=== PATIENT | female | born 1965 | race Caucasian/White ===

== ENCOUNTER → 2017-09-25 16:20 | Outpatient (CLI) | payer OTHER, SELFPAY ==
--- NOTE | 2017-09-25 16:26 | BI_ITS ---
MAMMOGRAPHY - BILATERAL SCREENING REASON FOR EXAM: Female, 52 years old. Routine annual screening examination. PERTINENT HISTORY: Sister with breast cancer. Aunt with breast cancer. TECHNIQUE: Digital bilateral breast peter (3D mammographic acquisition) in the CC and MLO projections. 2-D mediolateral oblique (MLO) and craniocaudad (CC) views of both breasts were obtained. CAD: Full Field Digital Mammography with Computer Added Detection was performed. COMPARISON: Comparison is made with prior study dated September 13, 2016 and December 12, 2015. FINDINGS: Breast Composition: There are scattered areas of fibroglandular density. There are no dominant masses or suspicious calcifications. No other significant abnormalities are identified. There has been no significant change since the prior study. BI/SCREENING MAMM (CAD), BILAT IMPRESSION: Stable bilateral screening mammogram. Yearly follow-up mammogram recommended. (A) ASSESSMENT CATEGORY: BIRADS Category 1: Negative. A letter regarding these results will be sent to the patient by the facility within 30 days. Approximately 10% of breast cancers are not detected by mammography. A normal mammogram should not delay biopsy of a clinically suspicious abnormality. [id number] Electronically Signed: Ronal Duagn MD at 9:06 EDT Tel [phone], Service support ,
== END ==
PROVIDERS: Family Provider Family Medicine; PCP Family Medicine; Visit Provider Obstetrics & Gynecology
DX: Z12.31 Encounter for screening mammogram for malignant neoplasm of breast (principal)
CPT/HCPCS: 77063; 77067

== ENCOUNTER → 2018-02-20 07:16 | Outpatient (CLI) | payer OTHER, SELFPAY ==
[2018-02-20 07:21] LABS: Mucous, Urine 0 SEEN /hpf (<or=2+); Red Blood Cells-Urine 0 SEEN /hpf (0-5); White Blood Cells 0 SEEN /hpf (0-5)
[2018-02-20 07:38] LABS: Color, Urine Yellow (Yellow); Glucose, Dipstick Normal (Normal); Ketone-Dipstick Negative (Negative); Leukocyte Esterase-Dipstick 25 /ul (Negative); Nitrite-Dipstick Negative (Negative); Occult Blood-Urine 10 /ul (Negative); Protein-Dipstick Negative (Negative); Urine Bilirubin Dipstick Negative (Negative); Urine Clarity Sl. Cloudy (Clear); Urine Urobilinogen Normal (Normal)
[2018-02-20 07:43] LABS: Bacteria RARE /hpf (None Seen); Hyaline Cast 0-5 SEEN /lpf (0-5); Squamous Epithelial Cells - UA 0-5 SEEN /hpf (5-10)
== END ==
PROVIDERS: Family Provider Family Medicine; PCP Family Medicine; Referring Provider Nurse Practitioner Family; Visit Provider Nurse Practitioner Family
DX: N02.9 Recurrent and persistent hematuria with unspecified morphologic changes (principal)
CPT/HCPCS: 81001; 87086; 87088

== ENCOUNTER → 2018-03-14 12:53 | Outpatient (CLI) | payer OTHER, SELFPAY ==
[2018-03-14 13:20] LABS: Color, Urine Yellow (Yellow); Glucose, Dipstick Normal (Normal); Ketone-Dipstick Negative (Negative); Leukocyte Esterase-Dipstick 25 /ul (Negative); Nitrite-Dipstick Negative (Negative); Occult Blood-Urine Negative /ul (Negative); Protein-Dipstick Negative (Negative); Urine Bilirubin Dipstick Negative (Negative); Urine Clarity Clear (Clear); Urine Urobilinogen Normal (Normal)
== END ==
PROVIDERS: Family Provider Family Medicine; PCP Family Medicine; Referring Provider Nurse Practitioner Family; Visit Provider Nurse Practitioner Family
DX: N02.9 Recurrent and persistent hematuria with unspecified morphologic changes (principal)
CPT/HCPCS: 81002

== ENCOUNTER → 2018-04-29 06:27 | Outpatient (CLI) | payer OTHER, SELFPAY ==
[2018-04-29 08:56] LABS: Anion Gap 8 (5-15); BUN 12 mg/dL (7-18); BUN/Creat Ratio 15.6 RATIO (10-20); Calcium,Total 9.5 mg/dL (8.5-10.1); Chloride 104 mmol/L (98-107); Creatinine, Serum 0.77 mg/dL (0.55-1.02); EST Glomerular Filtration Rate 83 mL/min (>60); Est Glom Filt Rate - Afr Amer 101 mL/min (>60); Glucose 92 mg/dL (74-106); Sodium Level 140 mmol/L (136-145); Thyroid Stim Hormone (TSH) 3.51 uIU/mL (0.358-3.74)
== END ==
PROVIDERS: Family Provider Family Medicine; PCP Family Medicine; Referring Provider Family Medicine; Visit Provider Family Medicine
DX: R00.2 Palpitations (principal)
CPT/HCPCS: 36415; 80048; 84443

== ENCOUNTER → 2018-09-02 12:55 | Outpatient (CLI) | payer OTHER, SELFPAY ==
[2018-08-28 14:58] VITALS: BMI 31.8
--- NOTE | 2018-09-02 13:08 | ECHOD_ITS ---
Reason For Study: PALPITATIONS Procedure This was a 2D Doppler, Color Flow transthoracic echocardiogram. Exam performed in department. Left Ventricle Normal LV size. Left ventricular systolic function is normal. The estimated ejection fraction is 65 %. Normal diastology for age. No regional wall motion abnormalities noted. Right Ventricle Normal RV size. Normal systolic function. Atria Normal left atrium. Normal right atrium. Mitral Valve Normal mitral valve. Tricuspid Valve Normal tricuspid valve. Aortic Valve Normal aortic valve. Trisinus/trileaflet aortic valve. Pulmonic Valve Normal pulmonic valve. Great Vessels Normal aortic root. The pulmonary artery is normal size. Normal inferior vena cava. Pericardium/Pleural No pericardial effusion. MMode/2D Measurements & Calculations LVIDd: 4.6 cm IVSd: 0.82 cm Ao root diam: 3.0 cm LVIDs: 3.2 cm LVPWd: 0.95 cm RVDd: 3.5 cm FS: 31.8 % LAV(MOD-bp): 66.6 ml LA A4 area: 19.4 cm2 LA dimension(2D): 4.2 cm LAV(MOD-bp) Indexed: 30.5 ml/m2 LAV(MOD-sp2): 73.5 ml LAV(MOD-sp4): 58.9 ml RA A4 area: 12.0 cm2 Time Measurements MV dec time: 0.22 sec Doppler Measurements & Calculations MV E max gagan: 55.2 cm/sec Lat Peak E' Gagan: 9.4 cm/sec Med Peak E' Gagan: 9.0 cm/sec MV A max gaagn: 50.6 cm/sec E/E' lat: 5.9 E/E' med: 6.2 MV E/A: 1.1 Ao V2 max: 107.7 cm/sec LV V1 max: 116.6 cm/sec Ao max P.6 mmHg LV V1 max P.4 mmHg Interpretation Summary Normal LV size. Left ventricular systolic function is normal. The estimated ejection fraction is 65 %. Normal diastology for age. Structurally normal valves. Ordering Physician: Cyn Belcher Referring Physician: Cyn Belcher Performed By: Magi Daniels RDCS, RVT
== END ==
PROVIDERS: Family Provider Family Medicine; PCP Family Medicine; Referring Provider Family Medicine; Visit Provider Family Medicine
DX: R00.2 Palpitations (principal)
CPT/HCPCS: 93306

== ENCOUNTER → 2018-10-04 10:48 | Outpatient (CLI) | payer OTHER, SELFPAY ==
[2018-08-28 14:58] VITALS: BMI 31.8
--- NOTE | 2018-10-04 10:59 | BI_ITS ---
MAMMOGRAPHY - BILATERAL SCREENING REASON FOR EXAM: Female, 53 years old. Routine annual screening examination. PERTINENT HISTORY: Sister with breast cancer. Aunt with breast cancer. TECHNIQUE: Digital bilateral breast queta (3D mammographic acquisition) in the CC and MLO projections. 2-D mediolateral oblique (MLO) and craniocaudad (CC) views of both breasts were obtained. CAD: Full Field Digital Mammography with Computer Added Detection was performed. COMPARISON: Comparison is made with prior examination dated September 25, 2017 and September 13, 2016. FINDINGS: Breast Composition: There are scattered areas of fibroglandular density. There are no dominant masses or suspicious calcifications. No other significant abnormalities are identified. There has been no significant change since the prior study. BI/SCREEN MAMM (CAD) W/QUETA BILAT IMPRESSION: Stable bilateral screening mammogram. Yearly follow-up mammogram recommended. (A) ASSESSMENT CATEGORY: BIRADS Category 1: Negative. A letter regarding these results will be sent to the patient by the facility within 30 days. Approximately 10% of breast cancers are not detected by mammography. A normal mammogram should not delay biopsy of a clinically suspicious abnormality. [id number] Electronically Signed: Ronal Dugan, at 9:00 EDT , Service support ,
== END ==
PROVIDERS: Family Provider Family Medicine; PCP Family Medicine; Referring Provider Nurse Practitioner Women's Health; Visit Provider Nurse Practitioner Women's Health
DX: Z12.31 Encounter for screening mammogram for malignant neoplasm of breast (principal)
CPT/HCPCS: 77063; 77067

== ENCOUNTER → 2019-11-30 16:51 | Outpatient (CLI) | payer OTHER, SELFPAY ==
[2019-11-30 14:30] VITALS: BMI 31.8
[2019-12-05 12:02] LABS: HPV APTIMA, High Risk Negative (Negative)
== END ==
PROVIDERS: PCP Family Medicine; Referring Provider Nurse Practitioner Women's Health; Visit Provider Nurse Practitioner Women's Health
DX: Z12.4 Encounter for screening for malignant neoplasm of cervix (principal)
CPT/HCPCS: 87624; 88175; G0145

== ENCOUNTER → 2019-12-01 15:25 | Outpatient (CLI) | payer OTHER, SELFPAY ==
[2018-08-28 14:58] VITALS: BMI 31.8
[2019-11-30 14:30] VITALS: BMI 31.8
--- NOTE | 2019-12-01 15:25 | BI_ITS ---
MAMMOGRAPHY - BILATERAL SCREENING REASON FOR EXAM: Female, 54 years old. Routine annual screening examination. PERTINENT HISTORY: Sister with breast cancer. Aunt with breast cancer. TECHNIQUE: Digital bilateral breast queta (3D mammographic acquisition) in the CC and MLO projections. 2-D mediolateral oblique (MLO) and craniocaudad (CC) views of both breasts were obtained. CAD: Full Field Digital Mammography with Computer Added Detection was performed. COMPARISON: Comparison is made with prior examination dated October 04, 2018 and September 25, 2017. FINDINGS: Breast Composition: There are scattered areas of fibroglandular density. There are no dominant masses or suspicious calcifications. Stable benign-appearing bilateral axillary lymph nodes. Stable 5 mm calcified nodule in the medial retroareolar region of the left breast No other significant abnormalities are identified. There has been no significant change since the prior study. BI/SCREEN MAMM (CAD) W/QUETA BILAT IMPRESSION: Stable bilateral screening mammogram. Yearly follow-up mammogram recommended. (A) ASSESSMENT CATEGORY: BIRADS Category 2: Benign. A letter regarding these results will be sent to the patient by the facility within 30 days. Approximately 10% of breast cancers are not detected by mammography. A normal mammogram should not delay biopsy of a clinically suspicious abnormality. [id number] Electronically Signed: Ronal Dugan, at 9:04 EDT , Service support ,
== END ==
PROVIDERS: PCP Family Medicine; Referring Provider Obstetrics & Gynecology; Visit Provider Obstetrics & Gynecology
DX: Z12.31 Encounter for screening mammogram for malignant neoplasm of breast (principal); Z80.3 Family history of malignant neoplasm of breast
CPT/HCPCS: 77063; 77067

== ENCOUNTER 2020-08-22 13:23 | Outpatient (RCR) | payer OTHER, SELFPAY ==
[2019-11-30 14:30] VITALS: BMI 31.8
--- NOTE | 2021-05-01 17:11 | DS.PCM_ITS ---
Massage Therapy Discharge Summary: Initial Evaluation Date: 08/22/2020 Diagnosis: Back/Hip Pain No. of Visits: 1 Date of last visit: 08/22/20 This patient is being discharged from our care at the [facility]. Thank you, Karen Mcmanus LMT
== END 2020-08-22 19:00 | disposition home or self-care (01) ==
LOC: MASS 13:23
PROVIDERS: PCP Nurse Practitioner Family; Visit Provider Nurse Practitioner Family
DX: M54.9 Dorsalgia, unspecified (principal); M25.559 Pain in unspecified hip
CPT/HCPCS: 97124

== ENCOUNTER → 2020-09-13 14:55 | Outpatient (CLI) | payer OTHER, SELFPAY ==
[2019-11-30 14:30] VITALS: BMI 31.8
--- NOTE | 2020-09-13 14:59 | US_ITS ---
STUDY: SUPERFICIAL ULTRASOUND - POPLITEAL FOSSA. REASON FOR EXAM: Female, 55 years old. L POSTERIOR KNEE PAIN,RULE OUT BAKERS CYST TECHNIQUE: A superficial ultrasound was performed with real-time and static rodney-scale imaging. COMPARISON: None. FINDINGS: Sonographic imaging of the popliteal fossa was performed. No evidence of Lew''s cyst. Dilatation of the popliteal vein. US/Ext Non Vasc Limited/Soft Tiss IMPRESSION: No evidence of a Lew''s cyst. There is evidence of dilatation of the popliteal vein. Electronically Signed: Ronal Dugan MD at 15:32 EDT , Service support ,
--- NOTE | 2020-09-13 15:10 | RAD_ITS ---
STUDY: X-RAY - LEFT KNEE REASON FOR EXAM: Female, 55 years old. L POSTERIOR KNEE PAIN, RULE OUT BAKERS CYST TECHNIQUE: 4 view(s) of the knee. COMPARISON: None. FINDINGS: Normal visualized distal femur. Normal visualized proximal tibia and fibula. Normal proximal tibiofibular articulation. Normal medial femorotibial compartment. Normal lateral femorotibial compartment. Normal patellofemoral articulation. The soft tissue structures are unremarkable. RAD/Knee 4 or More Views IMPRESSION: Normal x-ray examination of the knee. Electronically Signed: Ronal Dugan MD at 15:44 EDT , Service support ,
== END ==
PROVIDERS: PCP Nurse Practitioner Family; Referring Provider Nurse Practitioner Family; Visit Provider Nurse Practitioner Family
DX: M25.562 Pain in left knee (principal)
CPT/HCPCS: 73564; 76882

== ENCOUNTER → 2020-09-15 15:09 | Outpatient (CLI) | payer OTHER, SELFPAY ==
[2019-11-30 14:30] VITALS: BMI 31.8
--- NOTE | 2020-09-15 15:11 | VDLE_ITS ---
Reason For Study: chronic pain left knee Procedure LEFT This is a venous duplex using B-mode, color GSV is normal. flow and spectral Doppler. CFV is compressible, spontaneous, phasic, Exam performed in department. competent, and demonstrates normal The exam was abbreviated due to the COVID 19 augmentation. protocol. FV is compressible, spontaneous, phasic, The exam was diagnostic. competent and demonstrates normal A preliminary report was called and/or faxed augmentation. to Antonette Osborn INVENTORY CLERK-C. POP V is compressible, spontaneous, phasic, competent and demonstrates normal augmentation. T/P Trunk is compressible. PTV is compressible. LT PerV is compressible. VL/Venous Duplex US, Unilateral Interpretation Summary There is no evidence of left lower extremity deep vein thrombosis. Left great s aphenous vein appears patent and compressible segmentally. Slight sluggish flow noted within a minima lly dilated left popliteal vein COVID-19 protocol utilized Ordering Physician: Antonette Alexander Performed By: Augustus Raza RVT
== END ==
PROVIDERS: PCP Nurse Practitioner Family; Referring Provider Nurse Practitioner Family; Visit Provider Nurse Practitioner Family
DX: M25.562 Pain in left knee (principal)
CPT/HCPCS: 93971

== ENCOUNTER → 2021-01-09 07:31 | Outpatient (CLI) | payer OTHER, SELFPAY ==
--- NOTE | 2021-01-09 07:54 | US_ITS ---
STUDY: ABDOMINAL ULTRASOUND - RIGHT UPPER QUADRANT REASON FOR VISIT: Female, 55 years old ABN LEVELS TECHNIQUE: Ultrasound evaluation of the right upper quadrant was performed with real-time and static rodney-scale imaging. TECHNICAL QUALITY: Adequate. COMPARISON: None. FINDINGS: Liver: The liver measures 17.2 cm. There is increased echogenicity consistent with fatty infiltration. The bile ducts are within normal limits. There is hepatic color flow. The direction of portal flow is hepatopetal. There is no demonstrated mass lesion. Gallbladder: Normal distended gallbladder. The gallbladder wall measures 2.8 mm. There is a negative sonographic Thakur''s sign. There is no pericholecystic fluid. There are no gallstones. Common Bile Duct (C.B.D.): The common bile duct measures 5.5 mm. Pancreas: Normal size of the head, body and tail of the pancreas. There is normal echogenicity of the pancreas. There is no demonstrated pancreatic mass or cyst. Right Kidney: Normal size of the right kidney. The right kidney measures 12.6 cm x 6.4 cm x 4.1 cm. Normal renal cortex. The right cortex measures 1.4 cm. There is no demonstrated renal mass or cyst. There is no right hydronephrosis. US/Liver IMPRESSION: Fatty infiltration of the liver. Electronically Signed: Ronal Dugan MD at 8:57 EDT , Service support ,
[2021-01-09 08:01] LABS: Absolute Lymphocyte Count 0.91 X10^3/uL (0.83-4.51); Absolute Neutrophil Count 2.3 X10^3/uL (2.0-7.7); Basophil# 0.02 X10^3/uL; Basophil% 0.6 % (0-1); Hematocrit 41.4 % (37-47); Hemoglobin 13.7 g/dL (12.0-15.0); Lymphocyte # 0.91 X10^3/ul (0.83-4.51); Lymphocyte % 25.8 % (19-41); Mean Corp Hgb Conc 33.1 g/dL (32-36); Mean Corpuscular Volume 90.8 fL (81-99); Monocyte% 8.5 % (0-10); NRBC Flagged by Analyzer 0 % (0-5); Neutrophil # 2.29 X10^3/uL (2.7-7.7); Neutrophil % 64.8 % (47-70); Platelet Count 268 K/mm3 (150-450); RBC Distribution Width CV 13.1 % (11.6-14.6); RBC Distribution Width SD 43.6 fl (35.1-43.9); Red Blood Count 4.56 M/mm3 (4.2-5.4); White Blood Count 3.5 K/mm3 (4.4-11.0)
[2021-01-09 08:41] LABS: CPK Total, Creatine Kinase 105 U/L (26-192); Ferritin 770 ng/mL (8-252); GGTP 242 U/L (5-55); Thyroid Stim Hormone (TSH) 1.95 uIU/mL (0.358-3.74)
[2021-01-09 08:58] LABS: International Normalized Ratio 1.1; Prothrombin Time (Protime)PT. 13.7 SECONDS (11.7-14.9)
[2021-01-10 20:07] LABS: HEPATITIS B SURFACE AG Negative (Negative); Hepatitis A IgM Antibody Negative (Negative); Hepatitis B Core AB IgM Negative (Negative)
[2021-01-11 09:18] LABS: EBV Acute VCA IgM < 36.0 U/mL (0.0-35.9); EBV Nuclear Antigen IgG < 18.0 U/mL (0.0-17.9); EBV-VCA IgG < 18.0 U/mL (0.0-17.9); Hep C Antibodies <0.1 s/co ratio (0.0-0.9)
== END ==
PROVIDERS: PCP Nurse Practitioner Family; Referring Provider Nurse Practitioner Family; Visit Provider Nurse Practitioner Family
DX: R74.8 Abnormal levels of other serum enzymes (principal)
CPT/HCPCS: 36415; 76705; 80074; 82550; 82728; 82977; 84443; 85025; 85610; 86664; 86665

== ENCOUNTER → 2021-01-25 06:48 | Outpatient (CLI) | payer OTHER, SELFPAY ==
[2019-11-30 14:30] VITALS: BMI 31.8
--- NOTE | 2021-01-24 16:13 | BI_ITS ---
MAMMOGRAPHY - BILATERAL SCREENING REASON FOR EXAM: Female, 55 years old. Routine annual screening examination. PERTINENT HISTORY: Sister with breast cancer. Aunt with breast cancer. TECHNIQUE: Digital bilateral breast queta (3D mammographic acquisition) in the CC and MLO projections. 2-D mediolateral oblique (MLO) and craniocaudad (CC) views of both breasts were obtained. CAD: Full Field Digital Mammography with Computer Added Detection was performed. COMPARISON: Comparison is made with prior examination of 12/01/2019 and 10/04/2018. FINDINGS: Breast Composition: There are scattered areas of fibroglandular density. There are no dominant masses or suspicious calcifications. Stable 5 mm calcified nodule in the medial retroareolar region of the left breast. No other significant abnormalities are identified. There has been no significant change since the prior study. BI/SCRN MAMM (CAD)W/QUETA BILAT IMPRESSION: Stable bilateral screening mammogram. Yearly follow-up mammogram recommended. (A) ASSESSMENT CATEGORY: BIRADS Category 2: Benign. A letter regarding these results will be sent to the patient by the facility within 30 days. Approximately 10% of breast cancers are not detected by mammography. A normal mammogram should not delay biopsy of a clinically suspicious abnormality. [id number] Electronically Signed: Ronal Dugan MD at 8:30 EDT , Service support ,
== END ==
PROVIDERS: PCP Nurse Practitioner Family; Referring Provider Nurse Practitioner Women's Health; Visit Provider Nurse Practitioner Women's Health
DX: Z12.31 Encounter for screening mammogram for malignant neoplasm of breast (principal)
CPT/HCPCS: 77063; 77067

== ENCOUNTER → 2021-02-01 08:51 | Outpatient (CLI) | payer OTHER, SELFPAY ==
--- NOTE | 2021-02-01 09:00 | VDLE_ITS ---
Reason For Study: PAIN/SWELLING RIGHT GSV is normal. CFV is compressible, spontaneous, phasic, competent and demonstrates normal augmentation. FV is compressible, spontaneous, phasic, competent and demonstrates normal augmentation. POP V is compressible, spontaneous, phasic, competent and demonstrates normal augmentation. T/P Trunk is compressible. PTV is compressible. RT PerV is compressible. RT GASTROCNEMIUS V is DILATED & NONCOMPRESSIBLE. Procedure This is a venous duplex using B-mode, color flow and spectral Doppler. Exam performed in department. A preliminary report was called and/or faxed to Antonette Alexander ASSURANCE SENIOR MANAGER-C @ 9:30 am voicemail & FAX. VL/Venous Duplex US, Unilateral Interpretation Summary Acute deep venous thrombosis right gastrocnemius vein. No evidence for proximal progression. Patent and compressible right great saphenous vein Ordering Physician: Antonette Alexander Referring Physician: Antonette Alexander Performed By: Melodie Ayala, RDCS, RVT
== END ==
PROVIDERS: PCP Nurse Practitioner Family; Referring Provider Nurse Practitioner Family; Visit Provider Nurse Practitioner Family
DX: M79.89 Other specified soft tissue disorders (principal)
CPT/HCPCS: 93971

== ENCOUNTER → 2021-02-25 08:17 | Outpatient (CLI) | payer OTHER, SELFPAY ==
[2021-02-25 09:42] LABS: Absolute Neutrophil Count 2.5 X10^3/uL (2.0-7.7); Basophil# 0.03 X10^3/uL; Basophil% 0.7 % (0-1); Hemoglobin 13.5 g/dL (12.0-15.0); Lymphocyte % 29.1 % (19-41); Mean Corp Hgb Conc 32.9 g/dL (32-36); Mean Corpuscular Hgb 29.5 pg (27.0-32.0); Mean Corpuscular Volume 89.5 fL (81-99); Mean Platelet Vol. 9.5 fl (6.2-12.0); Monocyte# 0.34 X10^3/uL; Monocyte% 8.2 % (0-10); NRBC Flagged by Analyzer 0 % (0-5); Neutrophil # 2.54 X10^3/uL (2.7-7.7); Neutrophil % 61.5 % (47-70); Platelet Count 287 K/mm3 (150-450); RBC Distribution Width CV 12.4 % (11.6-14.6); RBC Distribution Width SD 40.4 fl (35.1-43.9); Red Blood Count 4.58 M/mm3 (4.2-5.4); White Blood Count 4.1 K/mm3 (4.4-11.0)
[2021-02-25 09:52] LABS: D-Dimer Quantitative (DVT/PE) 0.29 FEU/ug/m (0.27-0.49)
[2021-02-25 10:04] LABS: International Normalized Ratio 1.8; Prothrombin Time (Protime)PT. 20.1 SECONDS (11.7-14.9)
[2021-02-25 10:18] LABS: AST(SGOT) 33 U/L (15-37); Alanine Aminotransfer ALT/SGPT 37 U/L (13-56); Albumin, Serum 3.4 g/dL (3.2-5.0); Alkaline Phosphatase 84 U/L (45-117); Bilirubin, Direct 0.16 mg/dL (0.00-0.30); Ferritin 188 ng/mL (8-252); Globulin 5.2 g/dL (2.2-4.2); Iron 75 ug/dL (50-170); Iron Binding Capacity,Total 329 ug/dL (250-450); Phosphorus 3.5 mg/dL (2.5-4.9); Protein, Total 8.6 g/dL (6.4-8.2)
[2021-02-27 08:09] LABS: Hepatitis B Surface Antibody Non-Reactive
[2021-02-27 11:17] LABS: Alpha Antitrypsin Serum 144 mg/dL (101-187); Anti-Mitochondrial AB <20.0 Units (0.0-20.0)
[2021-03-03 15:36] LABS: AFP, Tumor Marker 3.3 ng/mL (0.0-8.3)
== END ==
PROVIDERS: PCP Nurse Practitioner Family
DX: R74.8 Abnormal levels of other serum enzymes (principal)
CPT/HCPCS: 36415; 80076; 81240; 81241; 82103; 82105; 82390; 82677; 82728; 83516; 83540; 83550; 84100; 84702; 85025; 85302; 85303; 85305; 85306; 85379; 85610; 86146; 86147; 86704; 86706; 86708

== ENCOUNTER → 2021-04-11 07:42 | Outpatient (CLI) | payer OTHER, SELFPAY ==
--- NOTE | 2021-04-11 07:44 | US_ITS ---
STUDY: ABDOMINAL ULTRASOUND - RIGHT UPPER QUADRANT REASON FOR VISIT: Female, 55 years old FATTY LIVER TECHNIQUE: Ultrasound evaluation of the right upper quadrant was performed with real-time and static rodney-scale imaging. TECHNICAL QUALITY: Adequate. COMPARISON: Prior comparison studies are not available for review at this time. FINDINGS: Liver: The liver measures 16 cm. There is increased echogenicity consistent with fatty infiltration. The bile ducts are within normal limits. There is hepatic color flow. The direction of portal flow is hepatopetal. Nearly, completely anechoic left hepatic cyst with thin septation measures 2.1 cm. No required imaging follow-up needed given high likelihood of benign nature. Gallbladder: Normal distended gallbladder. The gallbladder wall measures 2.1 mm. There is a negative sonographic Thakur''s sign. There is no pericholecystic fluid. There are no gallstones. Common Bile Duct (C.B.D.): The common bile duct measures 4.4 mm. Pancreas: There is no demonstrated pancreatic mass or cyst. Right Kidney: Normal size of the right kidney. There is no demonstrated renal mass or cyst. There is no right hydronephrosis. US/Liver IMPRESSION: 1. Increased echogenicity of the liver is nonspecific but most commonly associated with hepatic steatosis. 2. No gallstones or biliary obstruction. Electronically Signed: Graham Perry MD ([place]) at 14:40 EST , Service support ,
--- NOTE | 2021-04-11 08:01 | US_ITS ---
STUDY: ABDOMINAL ULTRASOUND - ELASTOGRAPHY REASON FOR VISIT: Female, 55 years old. Fatty infiltration of the liver. TECHNIQUE: Liver stiffness measurements were obtained on a [employer] RS 85 ultrasound machine using a CA 1-7 probe following the SRU guidelines. 3 measurements were obtained using a 2-D-SWE method. The IQR/M was 23% suggesting a quality data set. TECHNICAL QUALITY: Adequate. COMPARISON: Comparison is made with prior examination done earlier today. FINDINGS: Liver: There is evidence of fatty infiltration of the liver. Median liver stiffness measured 6.5 kPa. US/Elastography Parenchyma/Organ IMPRESSION: Liver stiffness measures 6.5 kPa compatible with F2 Metavir score. Electronically Signed: Ronal Dugan MD at 10:41 EST , Service support ,
== END ==
PROVIDERS: PCP Nurse Practitioner Family
DX: R74.8 Abnormal levels of other serum enzymes (principal); K76.0 Fatty (change of) liver, not elsewhere classified
CPT/HCPCS: 76705; 76981

== ENCOUNTER 2021-06-06 07:00 | Outpatient (CLI) | payer OTHER, SELFPAY ==
[2021-06-06 08:12] LABS: Absolute Lymphocyte Count 1.49 X10^3/uL (0.83-4.51); Absolute Neutrophil Count 4.5 X10^3/uL (2.0-7.7); Basophil# 0.04 X10^3/uL; Basophil% 0.6 % (0-1); Eosinophil# 0.01 X10^3/uL; Eosinophils% 0.2 % (0-5); Hematocrit 43.9 % (37-47); Hemoglobin 14.5 g/dL (12.0-15.0); Lymphocyte # 1.49 X10^3/ul (0.83-4.51); Lymphocyte % 22.9 % (19-41); Mean Corpuscular Hgb 29.3 pg (27.0-32.0); Mean Corpuscular Volume 88.7 fL (81-99); Mean Platelet Vol. 9.9 fl (6.2-12.0); Monocyte# 0.51 X10^3/uL; Monocyte% 7.8 % (0-10); NRBC Flagged by Analyzer 0 % (0-5); Neutrophil # 4.45 X10^3/uL (2.7-7.7); Neutrophil % 68.2 % (47-70); Platelet Count 341 K/mm3 (150-450); RBC Distribution Width CV 12.7 % (11.6-14.6); RBC Distribution Width SD 41.5 fl (35.1-43.9); Red Blood Count 4.95 M/mm3 (4.2-5.4); White Blood Count 6.5 K/mm3 (4.4-11.0)
[2021-06-06 08:17] LABS: D-Dimer Quantitative (DVT/PE) 0.37 FEU/ug/m (0.27-0.49)
[2021-06-06 08:48] LABS: ALB/GLOB Ratio 0.8 RATIO (0.9-2.4); AST(SGOT) 27 U/L (15-37); Alanine Aminotransfer ALT/SGPT 24 U/L (13-56); Alkaline Phosphatase 109 U/L (45-117); Anion Gap 8 (5-15); BUN 11 mg/dL (7-18); BUN/Creat Ratio 14.5 RATIO (10-20); Chloride 97 mmol/L (98-107); Creatinine, Serum 0.76 mg/dL (0.55-1.02); EST Glomerular Filtration Rate 83 mL/min (>60); Est Glom Filt Rate - Afr Amer 101 mL/min (>60); Globulin 5.1 g/dL (2.2-4.2); Glucose 103 mg/dL (74-106); Potassium 3.8 mmol/L (3.5-5.1); Protein, Total 9.1 g/dL (6.4-8.2); Sodium Level 133 mmol/L (136-145)
[2021-06-08 08:09] LABS: Dilute Prothrombin Time (dPT) 55.2 sec (0.0-47.6); Dilute Russell Viper Venom 100.5 sec (0.0-47.0); PTT-LA 48.4 sec (0.0-51.9); Thrombin Time 18.7 sec (0.0-23.0); dPT Confirm Ratio 0.74 Ratio (0.00-1.34)
[2021-06-08 14:18] LABS: Anti-Cardiolipin Ab, IgA, Qn 11 APL U/mL (0-11); Anti-Cardiolipin Ab, IgG, Qn < 9 GPL U/mL (0-14); Anti-Cardiolipin Ab, IgM, Qn 23 MPL U/mL (0-12); Beta-2-Glycoprotein I IgA <9 (0-25); Beta-2-Glycoprotein I IgG 124 (0-20); Beta-2-Glycoprotein I IgM <9 (0-32); Interpretation Comment: (.)
== END 2021-06-06 23:59 | disposition short-term general hospital (02) ==
PROVIDERS: PCP Nurse Practitioner Family
DX: I82.409 Acute embolism and thrombosis of unspecified deep veins of unspecified lower extremity (principal)
CPT/HCPCS: 36415; 80053; 85025; 85379; 86146; 86147

== ENCOUNTER 2021-07-24 07:25 | Outpatient (CLI) | payer OTHER, SELFPAY ==
[2021-07-24 08:29] LABS: International Normalized Ratio 2.7; Prothrombin Time (Protime)PT. 27.7 SECONDS (11.7-14.9)
== END 2021-07-24 23:59 | disposition home or self-care (01) ==
PROVIDERS: PCP Nurse Practitioner Family
DX: Z86.718 Personal history of other venous thrombosis and embolism (principal)
CPT/HCPCS: 36415; 85610

== ENCOUNTER 2021-08-26 08:17 | Outpatient (CLI) | payer OTHER, SELFPAY ==
[2021-08-26 08:54] LABS: Absolute Lymphocyte Count 1.45 X10^3/uL (0.83-4.51); Absolute Neutrophil Count 2.6 X10^3/uL (2.0-7.7); Basophil# 0.04 X10^3/uL; Basophil% 0.9 % (0-1); Eosinophil# 0.07 X10^3/uL; Eosinophils% 1.6 % (0-5); Hematocrit 43.2 % (37-47); Hemoglobin 14.5 g/dL (12.0-15.0); Lymphocyte # 1.45 X10^3/ul (0.83-4.51); Lymphocyte % 32.2 % (19-41); Mean Corp Hgb Conc 33.6 g/dL (32-36); Mean Corpuscular Hgb 29.3 pg (27.0-32.0); Mean Corpuscular Volume 87.3 fL (81-99); Mean Platelet Vol. 9.3 fl (6.2-12.0); Monocyte# 0.34 X10^3/uL; Monocyte% 7.6 % (0-10); NRBC Flagged by Analyzer 0 % (0-5); Neutrophil # 2.58 X10^3/uL (2.7-7.7); Neutrophil % 57.3 % (47-70); Platelet Count 298 K/mm3 (150-450); RBC Distribution Width SD 41.1 fl (35.1-43.9); Red Blood Count 4.95 M/mm3 (4.2-5.4); White Blood Count 4.5 K/mm3 (4.4-11.0)
[2021-08-26 09:23] LABS: ALB/GLOB Ratio 0.8 RATIO (0.9-2.4); AST(SGOT) 25 U/L (15-37); Alanine Aminotransfer ALT/SGPT 22 U/L (13-56); Albumin, Serum 3.8 g/dL (3.2-5.0); Alkaline Phosphatase 100 U/L (45-117); Anion Gap 3 (5-15); BUN 9 mg/dL (7-18); BUN/Creat Ratio 11.9 RATIO (10-20); Calcium,Total 9.7 mg/dL (8.5-10.1); Chloride 103 mmol/L (98-107); Creatinine, Serum 0.75 mg/dL (0.55-1.02); EST Glomerular Filtration Rate 84 mL/min (>60); Est Glom Filt Rate - Afr Amer 101 mL/min (>60); Globulin 4.8 g/dL (2.2-4.2); Glucose 98 mg/dL (74-106); Potassium 3.8 mmol/L (3.5-5.1); Protein, Total 8.6 g/dL (6.4-8.2); Sodium Level 134 mmol/L (136-145)
[2021-08-26 10:03] LABS: D-Dimer Quantitative (DVT/PE) 0.42 FEU/ug/m (0.27-0.49)
[2021-08-29 12:01] LABS: Albumin 3.7 g/dL (2.9-4.4); Alpha-1-Globulins 0.3 g/dL (0.0-0.4); Dilute Prothrombin Time (dPT) 123.3 sec (0.0-47.6); Dilute Russell Viper Venom 77.7 sec (0.0-47.0); Free Kappa Light Chains 25.1 mg/L (3.3-19.4); Free Lambda Light Chains 23.1 mg/L (5.7-26.3); Immunoglobulin A 303 mg/dL (87-352); Immunoglobulin G 1790 mg/dL (586-1602); Immunoglobulin M 199 mg/dL (26-217); PROEL- TOTAL PROTEIN 8.2 g/dL (6.0-8.5); PTT-LA 46.8 sec (0.0-51.9); Thrombin Time 20.7 sec (0.0-23.0); dPT Confirm Ratio 1.09 Ratio (0.00-1.34)
[2021-08-29 12:51] LABS: Anti-Cardiolipin Ab, IgA, Qn 11 APL U/mL (0-11); Anti-Cardiolipin Ab, IgG, Qn < 9 GPL U/mL (0-14); Anti-Cardiolipin Ab, IgM, Qn 23 MPL U/mL (0-12); Interpretation Comment: (.)
[2021-08-29 13:15] LABS: Beta-2-Microglobulin, S 1.4 mg/L (0.6-2.4)
== END 2021-08-26 23:59 | disposition home or self-care (01) ==
LOC: LAB 08:19
PROVIDERS: PCP Nurse Practitioner Family
DX: I82.409 Acute embolism and thrombosis of unspecified deep veins of unspecified lower extremity (principal); R79.89 Other specified abnormal findings of blood chemistry
CPT/HCPCS: 36415; 80053; 82232; 82784; 83883; 84165; 85025; 85379; 86147; 86334

== ENCOUNTER → 2021-09-25 | Outpatient (CLI) | payer OTHER, SELFPAY ==
--- NOTE | 2021-09-25 09:14 | RAD_ITS ---
STUDY: X-RAY - PELVIS AND BILATERAL HIPS REASON FOR EXAM: Female, 56 years old. Hip dysplasia. TECHNIQUE: AP view of the pelvis.? 2 views of the right hip, and 2 views of the left hip were obtained. COMPARISON: 05/16/2016. FINDINGS: There is a non-specific bowel gas pattern. Normal visualized soft tissue structures. Normal bilateral iliac wings, sacroiliac joints and visualized sacrum. Normal bilateral superior and inferior pubic rami. Moderate arthrosis of the symphysis pubis. Normal bilateral ischial tuberosities. Stable dysplastic changes of both hips with progression of bilateral osteoarthrosis, right greater than left. RAD/Hips B/L min 2 views w/ Pelvis IMPRESSION: Moderate arthrosis of the symphysis pubis unchanged. Progression of osteoarthritic changes of both hips with stable dysplastic changes. No acute abnormality. Electronically Signed: Victor Manuel Jiménez MD at 9:59 EDT ,
--- NOTE | 2021-09-25 09:14 | RAD_ITS ---
STUDY: X-RAY - LEFT KNEE REASON FOR EXAM: Female, 56 years old. Chronic left knee pain. TECHNIQUE: 4 view(s) of the knee. COMPARISON: None. FINDINGS: Normal visualized distal femur. Normal visualized proximal tibia and fibula. Normal proximal tibiofibular articulation. Small superior patellar spur. Mild arthrosis of the medial femorotibial compartment. Normal lateral femorotibial compartment. Slight lateral tilt and subluxation of the patella with mild arthrosis of the patellofemoral compartment. The soft tissue structures are unremarkable. RAD/Knee 4 or More Views IMPRESSION: Small superior patellar spur. Mild arthrosis of the medial and patellofemoral compartments. No acute abnormality, chondrocalcinosis or erosive changes. Electronically Signed: Victor Manuel Jiménez MD at 10:00 EDT ,
--- NOTE | 2021-09-25 09:15 | RAD_ITS ---
STUDY: X-RAY - LUMBAR SPINE REASON FOR EXAM: Female, 56 years old. Low back pain. TECHNIQUE: 3 view(s) of the lumbar spine were obtained. COMPARISON: 05/16/2016. FINDINGS: Normal lumbar lordosis. There is no substantial scoliosis. There is a normal alignment of the vertebrae. Diffuse mild facet sclerosis. Intervertebral disc space narrowing at L3-4, L4-5 and L5-S1 with small osteophytes at L4-5. The soft tissue structures are unremarkable. RAD/Lumbar Spine 2 or 3 Views IMPRESSION: Stable mild lumbosacral spondylosis. No acute abnormality, evidence of erosive changes or fusion. Electronically Signed: Victor Manuel Jiménez MD at 10:01 EDT ,
--- NOTE | 2021-09-25 09:33 | VDLE_ITS ---
Reason For Study: pain Procedure LEFT This is a venous duplex using B-mode, color GSV is normal. flow and spectral Doppler. CFV is compressible, spontaneous, phasic, Exam performed in department. competent, and demonstrates normal The exam was abbreviated due to the COVID 19 augmentation. protocol. FV is compressible, spontaneous, phasic, The exam was diagnostic. competent and demonstrates normal A preliminary report was called and/or faxed augmentation. to Vivienne Ruiz. POP V is compressible, spontaneous, phasic, competent and demonstrates normal augmentation. T/P Trunk is compressible. PTV is compressible. LT PerV is compressible. VL/Venous Duplex US, Unilateral Interpretation Summary There is no evidence of left lower extremity deep vein thrombosis. Left great s aphenous vein appears patent and compressible segmentally. Abbreviated COVID-19 protocol utilized Ordering Physician: Vivienne Ruiz Performed By: Augustus Raza RVT
--- NOTE | 2021-09-25 09:36 | ART_ITS ---
Reason For Study: claudication Procedure A bilateral lower extremity continuous wave Doppler with analog waveform analysis,segmental pressures,and ankle brachial indexes with exercise. Left Segmental Pressures Left brachial= 143mmHg. Left posterior tibial artery = 183mmHg. Left dorsalis pedis artery = 166mmHg. The left dorsalis pedis waveforms are triphasic. The left posterior tibial artery waveforms are triphasic. Right Segmental Pressures Right brachial= 142mmHg. Right posterior tibial artery = 169mmHg. Right dorsalis pedis artery = 162mmHg. The right dorsalis pedis waveforms are triphasic. The right posterior tibial artery waveforms are triphasic. Indices The right ankle brachial index by the dorsalis pedis is 1.13. The right ankle brachial index by the posterior tibial artery is 1.18. The right post exercise ankle brachial index is 1.15. The left ankle brachial index by the posterior tibial artery is 1.28. The left ankle brachial index by the dorsalis pedis is 1.16. The left post exercise ankle brachial index is 1.29. VL/Lower Ext Art Exam w/ Exercise Interpretation Summary Normal right lower extremity resting PT and DP ankle-brachial index of 1.18 and 1.13 respectively Normal right PT and DP triphasic Doppler waveforms Normal exercise arterial response from a resting 1.18 to immediately after exer cise at 1.15 Normal left PT and DP ankle-brachial index at rest at 1.28 and 1.16 respectivel y. Normal left posterior tibial and dorsalis pedis triphasic Doppler waveforms. Normal left lo wer extremity exercise response with a resting index of 1.28 and immediately after exercise a t 1.29 Ordering Physician: Vivienne Ruiz Performed By: Augustus Raza RVObi
== END | disposition home or self-care (01) ==
PROVIDERS: PCP Nurse Practitioner Family; Visit Provider Family Medicine
DX: M25.551 Pain in right hip (principal); I73.9 Peripheral vascular disease, unspecified; Q65.89 Other specified congenital deformities of hip; M54.50 Low back pain, unspecified; M79.89 Other specified soft tissue disorders; M25.562 Pain in left knee
CPT/HCPCS: 72100; 73521; 73564; 93924; 93971

== ENCOUNTER → 2022-01-29 | Outpatient (CLI) | payer OTHER, SELFPAY ==
--- NOTE | 2022-01-29 07:09 | BI_ITS ---
MAMMOGRAPHY - BILATERAL SCREENING REASON FOR EXAM: Female, 56 years old. Routine annual screening examination. PERTINENT HISTORY: Sister with breast cancer. Aunt with breast cancer. TECHNIQUE: Digital bilateral breast queta (3D mammographic acquisition) in the CC and MLO projections. 2-D mediolateral oblique (MLO) and craniocaudad (CC) views of both breasts were obtained. CAD: Full Field Digital Mammography with Computer Added Detection was performed. COMPARISON: Comparison is made with prior study dated 01/24/2021 and 12/01/2019. FINDINGS: Breast Composition: There are scattered areas of fibroglandular density. There are no dominant masses or suspicious calcifications. Stable 5 mm calcified nodule in the medial retroareolar region of the left breast. Stable benign-appearing bilateral axillary lymph nodes. No other significant abnormalities are identified. There has been no significant change since the prior study. BI/SCRN MAMM (CAD)W/QUETA BILAT IMPRESSION: Stable bilateral screening mammogram. Yearly follow-up mammogram recommended. (A) ASSESSMENT CATEGORY: BIRADS Category 2: Benign. A letter regarding these results will be sent to the patient by the facility within 30 days. Approximately 10% of breast cancers are not detected by mammography. A normal mammogram should not delay biopsy of a clinically suspicious abnormality. [id number] Electronically Signed: Ronal Dugan MD at 8:32 EDT ,
== END | disposition home or self-care (01) ==
LOC: OPBI 07:08
PROVIDERS: PCP Nurse Practitioner Family; Visit Provider Nurse Practitioner Women's Health
DX: Z12.31 Encounter for screening mammogram for malignant neoplasm of breast (principal); Z80.3 Family history of malignant neoplasm of breast
CPT/HCPCS: 77063; 77067

== ENCOUNTER 2022-02-19 06:24 | Day surgery (SDC) | payer OTHER, SELFPAY ==
[2022-02-19] VITALS (8 sets, daily range): BP systolic 95–110; BP diastolic 54–87; PULSE 72–115; RESP 14–16; TEMP 36.3–36.6; O2SAT 96–99; BMI 30.2
[2022-02-19] MEDS: Lactated Ringers 1,000 ML 15 ML IV (06:49)
--- NOTE | 2022-02-19 07:12 | HP.PCM_ITS ---
HPI - General HPI Narrative JEF CROW, is a 56 F who presents for asking colonoscopy. Patient is never had a previous colonoscopy. Did have Cologuard done about 5 years ago. Patient denies any chronic abdominal pain/nausea/vomiting/reflux. Patient does have bowel movements daily. Patient was able to stop her Coumadin for 5 days. office visit from 01/05/22: HPI: JEF CROW, is a 56 F who presents to the office today for screening colonoscopy.? Patient previously had a Cologuard test done about 5 years ago which was negative.? 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 Brandon Franco in [place] put her on Coumadin in June.? Patient states she has bowel movements daily denies any blood.? Patient does states she has reflux however may not even happen once a week pending type of food she eats.? Patient's never had an EGD or colonoscopy.? Patient's mom was diagnosed with colon cancer at age 87-and did have a colectomy. [facility]LY [facility] Medical History (Updated 02/14/22 @ 11:20 by Rowena Chavez) Anti-phospholipid syndrome Dietary restriction DVT (deep venous thrombosis) Easy bruising Elevated liver function tests Fatty liver Gastric reflux High cholesterol Hip dysplasia History of echocardiogram Hypertension Leg cramps Non-smoker Post-menopausal Seasonal allergies Shortness of breath on exertion Wears glasses Home Medications atenolol 50 mg tablet 50 mg PO BID 08/28/18 [History Last Taken 02/19/22] lisinopril 10 mg-hydrochlorothiazide 12.5 mg tablet 1 tab PO DAILY 08/28/18 [History Last Taken 02/19/22] fexofenadine 60 mg tablet (Kenia Allergy) 60 mg PO DAILY 11/30/19 [History Last Taken Unknown] multivitamin 1 tab PO DAILY 11/24/20 [History Last Taken Unknown] warfarin 2.5 mg tablet 2.5 mg PO MOWEFRSA 01/05/22 [History Last Taken 02/13/22] warfarin 5 mg tablet 5 mg PO SUTUTH 01/05/22 [History Last Taken 02/13/22] acetaminophen 500 mg tablet 1,000 mg PO BID PRN hip pain 02/14/22 [History Last Taken Unknown] Allergy/AdvReac Type Severity Reaction Status Date / Time Sulfa (Sulfonamide AdvReac Nausea/Vom/ Verified 02/19/22 06:44 Antibiotics) Diarrhea Family History Father Heart disease Neoplasm of lung Hypertension Sister Carcinoma of breast Aunt Carcinoma of breast Uncle Cancer colon Grandmother Arthritis Mother Colon cancer Surgical History (Updated 02/14/22 @ 11:09 by Rowena Chavez) History of surgery Social History adopted: No household members: spouse housing: house number of children: 3 current occupational status: employed current occupation: pre cert rep for [employer] sexually active: Yes Smoking Status: Never smoker alcohol intake: current alcohol intake frequency: a few times a month substance use type: does not use well-balanced diet: about half the time caffeine: Yes Type: coffee Number of servings: 2 what type of physical activity do you participate in: none seatbelt use: always do you feel safe at home: Yes Past Medical/Surgical History Planned Operation Planned Operative Procedure/s: COLONOSCOPY Previous Hospitalizations/Surgeries HX Hospitalizations: No Any Problems With Anesthesia: No You/Your Family Experience Fever (Hyperthermia) With Anes: No Cholinesterase deficiency: No Cardiovascular Hx Hypertension: Yes (PER PT, CONTROLLED ON MEDS) Respiratory Hx Sleep Apnea: No Hx Respiratory Tract Infection/Cold (presently): No Do You Snore Loudly (louder than talking or can be heard): No Do You Often Feel Tired/ Fatigued/ Sleepy Dring Daytime?: No Has Anyone Observed You Stop Breathing During Sleep?: No Result (for STOP score): Negative Smoking Status: Never smoker Neurological Does patient have nerve stimulator: No Reproduction : No Musculoskeletal Hx Arthritis: Yes Miscellaneous Recent Exposure to Contagious Disease: No Allergies Sulfa (Sulfonamide Antibiotics) Adverse Reaction (Verified 02/19/22 06:44) Nausea/Vom/Diarrhea Discharge Is Pt Admitted From a Intermediate, or a Residential: No Who Could Help: After D/C, Where Do you Plan to Go: Return Home Vital Signs Vital Signs Vital Signs: 02/19/22 06:49 02/19/22 06:49 Temperature 97.3 F L Temperature Source Temporal Pulse Rate 115 H Respiratory Rate 16 Respiratory Pattern Normal Blood Pressure 110/87 H Blood Pressure Mean 94 Blood Pressure Source Monitor Blood Pressure Position Semi-Fowlers Blood Pressure Location Left Arm Pulse Ox 99 Oxygen Delivery Method Room Air Weight Weight: 210 lb 6.4 oz Body Mass Index (BMI) 30.2 Physical Exam Const alert, oriented x3 and no apparent distress HEENT normocephalic and head/scalp atraumatic Resp normal respiratory effort Cardio regular rate GI soft to palpation and non-tender; Negative for non-distended Palpation: Negative for guarding Extremity no clubbing, cyanosis or edema Neuro CN's II-XII intact bilaterally Psych mental status grossly normal Assessment & Plan Assessment/Plan (1) Encounter for screening for malignant neoplasm of colon: Surgery Risks - Colonoscopy Risks Include but are not Limited To: Risks include but are not limited to: Bleeding, perforation requiring further surgery, inability to complete colonoscopy requiring barium enema.
--- NOTE | 2022-02-19 07:30 | COLBX_PTH ---
PATIENT: JEF CROW LOC: EN U#:[id number] AGE/SX: 56/F ROOM: RE02/19/[address]: Dr. Narcisa Yoo MD : 1965 BED: DIS: 02/19/2022 SPEC #: [id number] RECD: 02/19/22 13:34 STATUS: ANDRÉS REGanga #: [id number] DANGELO: 02/19/22 07:[address]: Narcisa Yoo DEPT: SURGICAL PATHOLOGY RECD BY: Piedad Womack ENTERED: 02/19/22 13:35 SP TYPE: COLON BX OT DR: Niya Hernandez, CLEANING ASSOCIATE-C Tissues: A - Cecum, NOS B - Ascending colon C - Ascending colon D - Descending colon Procedures: Surgery Specimen Level IV HEADER OPERATION: Colonoscopy (MAC) PRE-OP DIAGNOSIS: Screening TISSUE SUBMITTED: A ? Cecum polyp, B ? Ascending colon polyp, C ? Ascending colon polyp #2 (x2), D ? Descending colon polyp MICROSCOPIC DIAGNOSIS A. Cecal polyp, biopsy: Fragments of tubular adenoma. B. Ascending colon polyp, biopsy: Tubular adenoma. C. Ascending colon polyp #2, biopsy: Fragments of tubular adenoma. D. Descending colon polyp, biopsy: Fragments of tubular adenoma. AM:denisse 02/20/2022 MICROSCOPIC DESCRIPTION Slides are reviewed. GROSS DESCRIPTION A - Received in fixative is one container labeled with the patient's name and designated cecum polyp. The specimen consists of multiple irregular fragments of light curtis soft tissue that in aggregate measure 1.2 x 0.2 x 0.1 cm. The specimen is totally submitted in one cassette. B - Received in fixative is one container labeled with the patient's name and designated ascending colon polyp. The specimen consists of one irregular fragment of light curtis soft tissue that measures 0.4 x 0.3 x 0.1 cm. The specimen is totally submitted in one cassette. C - Received in fixative is one container labeled with the patient's name and designated ascending colon polyp #2 (x2). The specimen consists of two irregular fragments of light curtis soft tissue that in aggregate measure 0.7 x 0.5 x 0.2 cm. The specimen is totally submitted in one cassette. D - Received in fixative is one container labeled with the patient's name and designated descending colon polyp. The specimen consists of two irregular fragments of light curtis soft tissue that in aggregate measure 0.7 x 0.4 x 0.2 cm. The specimen is totally submitted in one cassette. / SJ:denisse 02/19/2022 TC:5 CPT: 33090 x4
--- NOTE | 2022-02-19 08:00 | OP.COLON_ITS ---
Patient Name: Khadijah Cooney Procedure Date: 02/19/2022 7:29 AM Date of : 1965 Age: 56 Procedure: Colonoscopy Indications: Screening for colorectal malignant neoplasm Providers: Narcisa Yoo MD Medicines: Monitored Anesthesia Care Patient Profile: This is a 56 year old female. Last Colonoscopy: none. The patient's first colonoscopy is today. Complications: No immediate complications. Procedure: Pre-Anesthesia Assessment: - Prior to the procedure, a History and Physical was performed, and patient medications and allergies were reviewed. The patient's tolerance of previous anesthesia was also reviewed. The risks and benefits of the procedure and the sedation options and risks were discussed with the patient. All questions were answered, and informed consent was obtained. Prior Anticoagulants: The patient has taken Coumadin (warfarin), last dose was 5 days prior to procedure. ASA Grade Assessment: Per anesthesia. After reviewing the risks and benefits, the patient was deemed in satisfactory condition to undergo the procedure. After I obtained informed consent, the scope was passed under direct vision. Throughout the procedure, the patient's blood pressure, pulse, and oxygen saturations were monitored continuously. The was introduced through the anus and advanced to the cecum, identified by the appendiceal orifice, ileocecal valve and palpation. The colonoscopy was performed without difficulty. The patient tolerated the procedure well. The quality of the bowel preparation was good. Scope In: 7:33:18 AM Scope Withdrawal Time 0 hours 14 minutes 28 seconds Scope Out: 7:52:54 AM Total Procedure Duration Time 0 hours 19 minutes 36 seconds Findings: Hemorrhoids were found on perianal exam. Non-bleeding external and internal hemorrhoids were found. The hemorrhoids were small and Grade I (internal hemorrhoids that do not prolapse). Two sessile polyps were found in the ascending colon and cecum. The polyps were 3 mm in size. These polyps were removed with a cold biopsy forceps. Resection and retrieval were complete. Three semi-sessile polyps were found in the descending colon and ascending colon. The polyps were 3 to 6 mm in size. These polyps were removed with a hot snare. Resection and retrieval were complete. The exam was otherwise without abnormality. Impression: - Hemorrhoids found on perianal exam. - Non-bleeding external and internal hemorrhoids. - Two 3 mm polyps in the ascending colon and in the cecum, removed with a cold biopsy forceps. Resected and retrieved. - Three 3 to 6 mm polyps in the descending colon and in the ascending colon, removed with a hot snare. Resected and retrieved. - The examination was otherwise normal. Recommendation: - Discharge patient to home. - Resume previous diet. - Continue present medications. - Resume Coumadin (warfarin) at prior dose tonight. - Await pathology results. - Repeat colonoscopy in 3 - 5 years for surveillance based on pathology results. Procedure Code(s): --- Professional --- 22430, PT, Colonoscopy, flexible; with removal of tumor(s), polyp(s), or other lesion(s) by snare technique 36666, 59, Colonoscopy, flexible; with biopsy, single or multiple Diagnosis Code(s): --- Professional --- Z12.11, Encounter for screening for malignant neoplasm of colon K64.0, First degree hemorrhoids D12.0, Benign neoplasm of cecum D12.4, Benign neoplasm of descending colon D12.2, Benign neoplasm of ascending colon CPT copyright 2017 [employer]. All rights reserved. The codes documented in this report are preliminary and upon compress engineer review may be revised to meet current compliance requirements. MD Narcisa Meyers MD 02/19/2022 8:00:11 AM This report has been signed electronically. Number of Addenda: 0 Note Initiated On: 02/19/2022 7:29 AM
--- NOTE | 2022-02-19 08:01 | OP.CCLET_ITS ---
02/19/2022 Vivienne Ruiz Re : Colonoscopy procedure for Khadijah Cooney Dear Joseph This procedure was performed on Saturday, February 19, 2022. My impressions and recommendations are as follows: Impressions : - Hemorrhoids found on perianal exam. - Non-bleeding external and internal hemorrhoids. - Two 3 mm polyps in the ascending colon and in the cecum, removed with a cold biopsy forceps. Resected and retrieved. - Three 3 to 6 mm polyps in the descending colon and in the ascending colon, removed with a hot snare. Resected and retrieved. - The examination was otherwise normal. Recommendations : - Discharge patient to home. - Resume previous diet. - Continue present medications. - Resume Coumadin (warfarin) at prior dose tonight. - Await pathology results. - Repeat colonoscopy in 3 - 5 years for surveillance based on pathology results. My findings are described in the full procedure note, which is enclosed. If I can be of further assistance, please feel free to contact me at Doctor phone number(s): , Work: . Sincerely, MD Narcisa Meyers MD 02/19/2022 8:00:11 AM This report has been signed electronically.
[2022-02-19 20:45] LABS: INR Fingerstick 1.2; Prothrombin Time Fingerstick 15.2 SEC (11.7-14.9)
[2022-02-21 08:35] LABS: INR Fingerstick 1.2; Prothrombin Time Fingerstick 15.2 SEC (11.7-14.9)
== END 2022-02-19 08:46 | disposition home or self-care (01) ==
LOC: EN 06:24 → AC 07:05
PROVIDERS: PCP Nurse Practitioner Family; Referring Provider Nurse Practitioner Family; Visit Provider Surgery
PROC: 0DJD8ZZ Inspection of Lower Intestinal Tract, Via Natural or Artificial Opening Endoscopic (ICD-10-PCS; CPT 45378; principal; 2022-02-19 07:25)
DX: Z12.11 Encounter for screening for malignant neoplasm of colon (principal); E78.00 Pure hypercholesterolemia, unspecified; I10 Essential (primary) hypertension; Z80.0 Family history of malignant neoplasm of digestive organs; Z79.2 Long term (current) use of antibiotics; K64.9 Unspecified hemorrhoids; D12.0 Benign neoplasm of cecum; D12.4 Benign neoplasm of descending colon; D12.2 Benign neoplasm of ascending colon; K64.0 First degree hemorrhoids
CPT/HCPCS: 45385; 45380; 36416; 85610; 88305; J7120; J2405

== ENCOUNTER → 2022-02-27 | Outpatient (CLI) | payer OTHER, SELFPAY ==
[2022-02-27 08:29] LABS: International Normalized Ratio 1.6; Prothrombin Time (Protime)PT. 18.9 SECONDS (11.7-14.9)
== END | disposition home or self-care (01) ==
LOC: LAB 07:27
PROVIDERS: PCP Nurse Practitioner Family
DX: I82.409 Acute embolism and thrombosis of unspecified deep veins of unspecified lower extremity (principal)
CPT/HCPCS: 36415; 85610

== ENCOUNTER 2022-03-14 09:25 | Outpatient (RCR) | payer OTHER, SELFPAY ==
[2022-03-14 09:56] LABS: International Normalized Ratio 2.5; Prothrombin Time (Protime)PT. 26.5 SECONDS (11.7-14.9)
[2022-03-14 10:20] LABS: D-Dimer Quantitative (DVT/PE) < 0.27 FEU/ug/m (0.27-0.49)
== END 2022-03-19 18:00 | disposition home or self-care (01) ==
LOC: LAB 09:25
PROVIDERS: PCP Nurse Practitioner Family
DX: I82.409 Acute embolism and thrombosis of unspecified deep veins of unspecified lower extremity (principal)
CPT/HCPCS: 36415; 85379; 85610

== ENCOUNTER 2022-04-10 09:09 | Outpatient (RCR) | payer OTHER, SELFPAY ==
[2022-04-10 12:00] LABS: INR Fingerstick 2.2; Prothrombin Time Fingerstick 25.5 SEC (11.7-14.9)
== END 2022-04-18 18:00 | disposition home or self-care (01) ==
LOC: LAB 09:09
PROVIDERS: PCP Nurse Practitioner Family
DX: I82.409 Acute embolism and thrombosis of unspecified deep veins of unspecified lower extremity (principal)
CPT/HCPCS: 36416; 85610

== ENCOUNTER → 2022-04-26 | Outpatient (CLI) | payer OTHER, SELFPAY ==
--- NOTE | 2022-04-26 13:11 | STRESSREP ---
Stress Test Report Date: 04/26/2022 Procedure: Pharmacologic stress nuclear imaging study Indications: Preop cardiac evaluation Consent: Per the patient Procedure: The patient underwent pharmacologic (Regadenoson 0.4mg ) evaluation with a peak heart rate of 90 beats per minute (55%predicted maximal heart rate) and a peak blood pressure of 140/98 mmHg. The baseline ECG demonstrated normal sinus rhythm. Nonspecific T changes. The peak pharmacologic ECG demonstrated no significant change. There were no cardiac dysrhythmias pretest, during pharmacologic infusion, or recovery. There was no complaint of chest discomfort during pharmacologic infusion or recovery. The patient was injected with 14.3 millicuries of technetium 99m Cardiolite and subsequently rest SPECT Cardiolite nuclear imaging was obtained in the horizontal long, vertical long, and short axis views. The patient underwent pharmacologic (Regadenoson) evaluation. The patient was injected with 43.7 millicuries of technetium 99m Cardiolite and subsequently stress SPECT Cardiolite nuclear imaging was obtained in the horizontal long, vertical long, and short axis views. A gated Cardiolite study at peak stress was obtained. The examination was stopped secondary to completion of protocol. Rest and stress SPECT Cardiolite nuclear imaging status post realignment, normalization, and attenuation correction demonstrate uniform tracer distribution. There is end systolic thickening and brightening. The gated Cardiolite study demonstrates myocardial thickening and inward wall motion. The reported LVEF is 71%. Impression: 1. Pharmacologic (Regadenoson) evaluation 2. Peak pharmacologic ECG with no ischemic changes. 3. There were no cardiac dysrhythmias pretest, during pharmacologic infusion, or recovery. 5. Rest and stress SPECT Cardiolite nuclear imaging demonstrate relative uniform tracer uptake and myocardial perfusion appearing within normal limits. 6. The gated Cardiolite study reports an LVEF of 71%. This note was generated with [employer] software. It may contain incorrect words, spelling, and punctuation that were not noted in checking the note before signing.
== END | disposition home or self-care (01) ==
LOC: CVS 06:03
PROVIDERS: PCP Nurse Practitioner Family; Visit Provider Internal Medicine Cardiovascular Disease
DX: Z01.810 Encounter for preprocedural cardiovascular examination (principal); I10 Essential (primary) hypertension
CPT/HCPCS: 78452; 93017; A9500; A4216; J2785

== ENCOUNTER 2022-05-10 09:49 | Outpatient (RCR) | payer OTHER, SELFPAY ==
[2022-05-10 11:15] LABS: International Normalized Ratio 2.3; Prothrombin Time (Protime)PT. 25.4 SECONDS (11.7-14.9)
== END 2022-05-10 18:00 | disposition home or self-care (01) ==
LOC: LAB 09:49
PROVIDERS: PCP Nurse Practitioner Family
DX: I82.409 Acute embolism and thrombosis of unspecified deep veins of unspecified lower extremity (principal)
CPT/HCPCS: 36415; 85610

== ENCOUNTER 2022-05-23 17:02 | Observation (INO) | payer OTHER, SELFPAY ==
--- NOTE | 2022-05-07 21:23 | PCM.HP.BLA ---
History and Physical History and Physical [facility] Patient Name: Khadijah Cooney : 1965 From:? PRAVIN LOPEZ PA-C? DATE OF SURGERY:? 05/23/2022 SCHEDULED PROCEDURE:? Right total hip arthroplasty HISTORY OF PRESENT ILLNESS: Preoperative history and physical exam was performed on May 07, 2022.? This is a 86-year-old female who has had ongoing pain for over 10 years and bilateral hips.? Right hip is worse than the left.? Patient has had previous treatment by other orthopedic surgeons and which she has had corticosteroid injections for bursitis.? She has had previous physical therapy with no relief.? She has tried aqua therapy.? Patient states her pain has been constant.? Pain is increased with going up and down stairs, sitting and walking.? She has difficulty with activities of daily living including bathing/showering, getting dressed, housework, shopping and leisure activities such as walking.? Weightbearing activities are worse.? She has difficulty putting on her socks and shoes.? She denies any low back pain or numbness and tingling.? She does get occasional pain at nighttime and has to sleep with a pillow between her knees.? Patient has tried rest, ice, heat, elevation and corticosteroid injections without relief.? She has been through previous aqua therapy and physical therapy.? She has tried Tylenol without relief.? She is unable to take nonsteroidal anti-inflammatories.? She denies previous surgery on bilateral hips.? She does have medical history for previous DVT and she has been diagnosed with antiphospholipid syndrome.? She currently sees coordinator of health services Dr. Brody.? She is currently on Coumadin.? She also has medical history pertinent for hypertension.? We have obtain surgical clearance from the primary care physician and coordinator of health services.? Sound Effects Person does recommend we hold the Coumadin 5 days prior to surgery.? Recommend starting Lovenox every 12 hours for 3 days prior to surgery.? Discontinue the Lovenox 24 hours prior to surgery.? We'll restart this postoperatively 24 hours and resume the Coumadin.? Patient currently denies any chest pain, shortness, fevers chills or recent infections.? We have also received clearance from the plaster tender Dr. Syed.? After failing conservative measures and discussing treatment options with Dr. Surjit Hernandez, the patient does wish to proceed with a right total hip arthroplasty. REVIEW OF SYSTEMS: Review Of Systems: Constitutional: Denies change in appetite, fever and weight change. Cardiovasular: Denies chest pain, heart murmur and irregular heartbeat. Respiratory: Denies cough, pneumonia, shortness of breath, tuberculosis and wheezing. Gastrointestinal: Reports heartburn, but denies constipation, diarrhea, nausea, rectal itching, bloody stools and vomiting. Musculoskeletal: Reports trouble walking and weakness, but denies leg swelling and pain. Skin: Reports tattoo, but denies Raynaud's and history of shingles. Neurological: Denies ambulatory dysfunction, dizziness, numbness/tingling and tremor. Psychiatric: Denies anxiety, insomnia and stress. Hematologic/Lymphatic: Denies anemia, bleeding/bruising tendency and past transfusion. Reviewed, no changes. PAST MEDICAL HISTORY: Advance Care Plan: Other Directive, LIVING WILL Effective Date: 01/15/2022 Other Directive, POA Effective Date: 01/15/2022 Past Medical History: Medical Problems: Acid Reflux, Arthritis, High Blood Pressure, Hypercholesterolemia, History Of Blood Clots/ DVT, Anti-phospholipid syndrome Accidents: None Surgical Hx: None Anesthesia Complications: None Assistive Devices: Glasses Reviewed, no changes. 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 Personal Habits:? Cigarette Use: Never Smoked Cigarettes.Smokeless Tobacco: Never Used Smokeless Tobacco.E-Cigarette Use: Never used.Alcohol: Occasionally.Drug Use: Denies Use.Enjoy Exercising: Exercises 1-3 x/month. Reviewed and updated. VITALS: Ht: 70 Wt: 210lb Wt k.256 BMI: 30.1 BP: 130/82 Pulse: 71 Resp: 18 T: 97.9 T: 36.6C Pain Level: 5 O2SatR: 100 ALLERGIES: Sulfa? MEDICATIONS: Lisinopril-Hydrochlorothiazide 10-12.5 mg 1 by mouth every day, Atenolol 50 mg 1 by mouth every day, Warfarin Sodium 5 mg sat, Warfarin Sodium 2.5 mg sat, Fluticasone Propionate Nasal [place] Allergy Relief 24- Hour 50 mcg/Act, [place] Allergy 60 mg 1po guan, Multi Vitamin? take one(1) tablet daily. PRE-OP EXAM:? General appearance:NORMAL? ? ? Other: Eyes: Conjunctivae and lids: NORMAL? Pupils: ERR Ears, Nose, Mouth, and Throat: NORMAL? Other: Inspection of lips, teeth and gums: NORMAL? ?Other: Neck: Examination of neck: no masses noted. Respiratory: Assessment of respiratory effort: NORMAL? ?Other: ?Auscultation of lungs: clear to auscultation no wheezes, rhonchi or rales. Cardiovascular:? Auscultation of heart: regular rate and rhythm, no murmurs, gallops or rubs. PHYSICAL EXAMINATION: Patient does walk with an antalgic gait.? She has flexed hip gait pattern.? She has 10 flexion contracture bilaterally.? Patient's right hip flexion 40 and internal rotation to neutral.? She has obligatory external rotation with flexion.? Left hip patient does have obligatory external rotation with flexion, flexion 50, internal rotation neutral.? Sensation intact to light touch to bilateral lower extremities. IMAGING STUDIES: X-rays of the right hip was obtained at [facility] on May 07, 2022 including 3 views AP pelvis, AP right hip, crossfire lateral right hip reveals no acute finding for fracture or dislocation.? Patient does have progressive severe right hip osteoarthritis with flattening of the femoral head with dysplastic changes.? There is valgus alignment of the femoral neck.? There is joint space narrowing, subchondral sclerosis and osteophyte formation.? This is consistent with severe stage IV right hip osteoarthritis X-rays of the left hip were obtained at [facility] on May 07, 2022 including 3 views AP pelvis, AP left hip, as far lateral left hip reveals no acute finding for fracture or dislocation.? Patient does have severe joint space narrowing with osteophyte formation, subchondral sclerosis, flattening of the femoral head consistent with stable dysplastic changes and severe stage IV left hip severe osteoarthritis.? There is valgus alignment of the femoral neck bilaterally. IMPRESSION: 1.? Severe right hip osteoarthritis 2.? Severe left hip osteoarthritis 3.? Hypertension 4.? History of DVT and antiphospholipid syndrome 5.? Gastroesophageal reflux disease 6.? Hypercholesterolemia PLAN: Dr. Surjit Hernandez did discuss and review with the patient all treatment options including surgical versus nonsurgical options.? Patient does wish to proceed with the above-stated procedure.? Potential risks, benefits, and complications of the procedure were discussed in detail including but not limited to , infection, nerve and blood vessel damage, persistent pain, numbness, tingling, paresthesias, blood clot, pulmonary embolism, and requirement for possible further surgery.? The patient expressed full understanding and has no further questions for the doctor.? Patient does agree to proceed with the above-stated procedure and has signed the surgery consent form. We discussed the current risks associated with COVID 19.? This does include the risk of exposure while in the hospital.? Patient was reassured local hospitals have low infection rates and are taking all necessary precautions to avoid exposure to patients.? In addition, we discussed strategies that can be used to help limit exposure including those that limit the patient's time in the hospital.? Also using strategies to limit the patient's need for continued inpatient services after being discharged from the hospital.? Patient was notified that we will need to comply with any screening or testing the hospital wishes to perform or that surgery may be delayed for any positive results. This dictation was created using voice recognition software. Phonetic and/or grammatical errors may exist. ___? I have re-examined the patient.? There are no clinical changes since date of exam. ___? See progress notes for changes. ___? Dictated on admission Date: ? ? ?Time: Signature:
[2022-05-10 11:07] LABS: Absolute Lymphocyte Count 1.87 X10^3/uL (0.83-4.51); Absolute Neutrophil Count 3.5 X10^3/uL (2.0-7.7); Basophil# 0.04 X10^3/uL; Basophil% 0.6 % (0-1); Eosinophil# 0.15 X10^3/uL; Eosinophils% 2.4 % (0-5); Hematocrit 41.6 % (37-47); Lymphocyte # 1.87 X10^3/ul (0.83-4.51); Lymphocyte % 30.1 % (19-41); Mean Corp Hgb Conc 33.7 g/dL (32-36); Mean Corpuscular Volume 89.1 fL (81-99); Monocyte# 0.62 X10^3/uL; NRBC Flagged by Analyzer 0 % (0-5); Neutrophil # 3.52 X10^3/uL (2.7-7.7); Neutrophil % 56.6 % (47-70); Platelet Count 292 K/mm3 (150-450); RBC Distribution Width CV 13.1 % (11.6-14.6); RBC Distribution Width SD 42.9 fl (35.1-43.9); Red Blood Count 4.67 M/mm3 (4.2-5.4); White Blood Count 6.2 K/mm3 (4.4-11.0)
[2022-05-10 11:25] LABS: Hemoglobin A1c 5.6 % (3.8-5.6)
[2022-05-10 11:44] LABS: Albumin, Serum 3.6 g/dL (3.2-5.0); Anion Gap 3 (5-15); BUN 16 mg/dL (7-18); BUN/Creat Ratio 20.3 RATIO (10-20); Calcium,Total 9.5 mg/dL (8.5-10.1); Chloride 100 mmol/L (98-107); Creatinine, Serum 0.79 mg/dL (0.55-1.02); EST Glomerular Filtration Rate 79 mL/min (>60); Est Glom Filt Rate - Afr Amer 96 mL/min (>60); Glucose 88 mg/dL (74-106); Potassium 3.9 mmol/L (3.5-5.1); Sodium Level 135 mmol/L (136-145)
[2022-05-23] VITALS (13 sets, daily range): BP systolic 108–144; BP diastolic 67–87; PULSE 70–81; RESP 14–18; TEMP 36.3–37; O2SAT 95–100; BMI 30.9
--- NOTE | 2022-05-23 | IMM_PTH ---
PATIENT: JEF CROW LOC: MS3 U#:[id number] AGE/SX: 56/F ROOM: [facility] [place] RE05/23/[address]: Dr. Surjit Hernandez MD : 1965 BED: 1 DIS: 05/24/2022 SPEC #: [id number] RECD: 05/30/22 14:19 STATUS: ANDRÉS REQ #: [id number] DANGELO: 05/23/22 00:[address]: Surjit Hernandez DEPT: IMMUNOHISTOCHEMISTRY RECD BY: Gracie Wu ENTERED: 05/30/22 14:20 SP TYPE: IMMUNO OTHR DR: Niya Hernandez, [employer] Tissues: Hip, NOS Procedures: CD20 (add) CD3 (add) CD45 (add) CD5 (add) CD79A (add) CK8 (add) KI-67 (add) Pankeratin (initial) PHYSICIAN [facility] INSTIT[facility] [address] [address] SPECIMEN INFORMATION: Tissue Source: Right femoral head Clinical Info: Right hip secondary osteoarthritis, dysplasia Specimen Number: [id number] #4 CPT code: 13392, 22556 x7 METHODOLOGY: Deparaffinized sections of prefer/formalin-fixed tissue or PAP/DQ stained slides are incubated with monoclonal/polyclonal antibodies/oligonucleotide probes. Localization is made via biotin free immunoperoxidase method. Appropriate controls are performed and reacted as expected. Results on target cell population are indicated in the following table: RESULTS: ANTIBODY / CLONE RESULT Block 4 AE1-3 (AE1/AE3/PCK26) negative CK8 (27tnewT37) negative CD3 (PS1) positive CD5 (SP10) positive CD20 (L26) positive CD45 (RP2/18) positive CD79a (11E3) positive Ki-67 (30-9) positive, low These tests were developed and their performance characteristics determined by [facility]. They may not have been cleared or approved by the U.S. Food and Drug Administration. The FDA has determined that such clearance or approval is not necessary. The above immunohistochemical/dualISH markers are ordered and reviewed by the Pathologist. INTERPRETATION: Right femoral head, total hip replacement/resection: Lymphoid aggregates, favor benign, polytypic in nature. SJ:denisse 05/31/2022 Case has been reviewed in consultation with Dr. Cantu who concurs with the above diagnosis. IDC:AM
--- NOTE | 2022-05-23 10:03 | PCM.OPRPT ---
Report of Operation Date of Procedure: 05/23/22 Pre-Operative Diagnosis: Right hip secondary osteoarthritis, dysplasia Post-Operative Diagnosis: Right hip secondary osteoarthritis, dysplasia Surgery/Procedure Performed:: Right minimally invasive direct anterior total hip replacement Description of Surgical Findings:: Stable hip with slightly increased leg length compared to the contralateral side based on radiographs due to dysplasia on the contralateral side Surgeon: Surjit Hernandez claims customer service representative: Chris Olivares Type of Anesthesia: Spinal Anesthesiologist: Kedar Kirkpatrick Special Medications: 2 g Ancef, 1 g TXA at incision, 1 g TXA closure, 10 mg Decadron, joint cocktail (5 mg Duramorph, 30 mL of 0.5% Ropivicaine, 1000 units of epinephrine, 30 mg of Toradol) Specimen's removed: Bony cuts Estimated Blood Loss (mL): 400 Fluids Replaced: 900 mL crystalloid Description of Procedure: Components used: 1. Insignia Cristina femoral stem size 4 high offset 2. [place] trident 2 acetabular shell size 56 mm 3. Cristina X3 polyethylene f 4. [place] Biolox delta 36mm, 2.5mm femoral head Brief history operative indications: 56 yo f who failed conservative measures for their hip osteoarthritis. X-rays were consistent with osteoarthritis including joint space narrowing, osteophyte formation and subchondral cysts. Total hip replacement was discussed with the patient with risks and benefits including but not limited to blood loss, DVTs, PEs, neurovascular damage, dislocation, general risks of anesthesia including loss of life. Patient demonstrated an understanding medical clearance is obtained the patient was consented for surgery. Procedure: On the date of procedure the patient's right hip was marked in the preoperative area. Patient was then taken back to the operating room where anesthesia assumed control of the C-spine and airway and administered anesthetic. Patient was transferred to the operating table and placed in the supine position. The hips were placed at the break of the bed and a sacral bump was placed. The right lower extremity was then prepped out in a sterile fashion using chlorhexidine while the surgeon scrubbed. The PA was vital in the positioning of the patient. Upon reentering the room the right lower extremity was draped in the standard orthopedic fashion and the incision was marked. A timeout was called and everyone agreed upon the side, the site, the procedure be performed, antibody given, and patient's identity. At this time incision was made through skin, subcutaneous tissue, and fat down to fascia. The fascia was then incised and the TFL was retracted laterally. A retractor was placed on the lateral border of the femoral neck. Attention was directed to the inferior portion of the approach and all crossing vessels were identified and appropriately coagulated. A retractor was then placed on the medial portion of the femoral neck. The anterior capsule was then cleared of all soft tissue and then H shaped capsulotomy was made. The retractors were then placed inside the capsule. The femoral neck was identified and a cleanup cut was made. At this time a power corkscrew was used to remove the femoral head. Attention was then turned toward the acetabulum where the soft tissues were appropriately retracted and the acetabulum was sequentially reamed to 56 mm. A 56 mm cup was then selected and impacted into place. 1 screw was placed in the safe zone 40 mm. Acetabular liner was impacted into place and locking mechanism was verified. The position of the acetabular cup was then verified under live fluoroscopy. Attention was then turned to the femur. Soft tissue releases on the medial and lateral femoral neck were appropriately done, the leg was externally rotated and lateralized. A Dowling retractor was placed medially and proximally to the greater trochanter this allowed appropriate visualization and exposure of the femoral canal. Rongeour was then used to remove excess lateral bone. A canal finder and entry broach were used to open the proximal canal. Once we verified we were down the femoral canal we subsequently broached up to a size 4 femur. The appropriate neck was placed in the previously selected head was trialed with a 2.5 mm neck. Traction was pulled and the hip was reduced with internal rotation. Once it was appropriately reduced and stability was checked. There was minimal shuck, equal leg lengths and appropriate stability with hyperextension and external rotation as well as with 90? flexion and internal rotation. Fluoroscopy was then also used to verify the position of the components and leg lengths using the contralateral side for comparison. The trial components were then dislocated the proximal femur was again exposed and the components were removed from the wound. The final components were verified and opened. The wound was copiously irrigated out with normal saline. The acetabulum was checked for any residual debris. The final components were placed and impacted. Traction and internal rotation were again used to reduce the hip. After adequate reduction the hip remained stable with appropriate leg lengths. The final components were once again checked with live fluoroscopy and were found to be satisfactory. The wound was then copiously irrigated with normal saline once more, and hemostasis was obtained. Closure was then done using #1 Vicryl runner to close the fascia. A 2-0 vicryl interuppted sutures were used to close the subcutaneous skin. A 3-0 Monocryl and Steri-Strips were used for final skin closure. A Silverlon dressing was placed. Patient was awakened by anesthesia and transferred to the [place]. Patient was then transferred to the PACU for recovery. During the course of the procedure the physician brimming machine operator (PE) played a vital role. Their intimate knowledge of my steps in the procedure aided in safe and expedient completion of the procedure. The PE played a vital rolls in positioning particularly in obtaining the appropriate positioning of the sacral bump. The PE was also vital in the retraction of soft tissues during the exposure and especially the femoral work as this is a vital part of the procedure to prevent complications and fractures. The PE was also vital and protecting soft tissues during times of bony cuts and reaming. He also played a vital role in closure with my direct supervision. The PE was also important during reduction and dislocation of the joint and trials intraoperatively. Postoperative plan: Patient will get 24 hours postop antibiotics. Patient will get in-house physical therapy and will be weight-bear as tolerated. Patient will follow up in office in 2 weeks for a wound check and x-rays. Patient will resume Coumadin tomorrow. She is on a bridging Lovenox dose managed by her outside physician. She will be discharged home on 100 mg subcu twice daily until she is therapeutic on her warfarin. Complications No intraoperative complications Admit VTE Documentation VTE Present on Admission: No VTE Mechan Device Prophylaxis: SCD's and Thigh High KOTA Hose VTE Pharm Prophylaxis ordered?: Yes
[2022-05-23 10:41] LABS: INR Fingerstick 1.3; Prothrombin Time Fingerstick 15.5 SEC (11.7-14.9)
[2022-05-23] MEDS: Acetaminophen 500 MG Tablet 1000 MG PO ×2 (10:47→21:45)
[2022-05-23] MEDS: Magnesium 1 GM over 15 mins IV (10:47)
[2022-05-23] MEDS: Gabapentin 600 MG Tablet PO (10:47)
[2022-05-23] MEDS: Lactated Ringers 1,000 ML 999 ML IV ×2 (10:47→14:40)
[2022-05-23 11:20] LABS: Bedside Glucose 102 mg/dL (74-106)
[2022-05-23] MEDS: Cefazolin 2 GM in 0.9% Normal Saline 100 ML IV (12:40)
[2022-05-23] MEDS: dexAMETHasone 10 MG/ML Vial IV (12:45)
--- NOTE | 2022-05-23 13:15 | FEM_PTH ---
PATIENT: JEF CROW LOC: MS3 U#:[id number] AGE/SX: 56/F [place]OM: [facility] [place]05/23/[address]: Dr. Surjit Hernandez MD : 1965 BED: 1 DIS: 05/24/2022 SPEC #: [id number] RECD: 05/23/22 14:49 STATUS: ANDRÉS REQ #: [id number] DANGELO: 05/23/22 13:[address]: Surjit Hernandez DEPT: SURGICAL PATHOLOGY RECD BY: Piedad Womack ENTERED: 05/24/22 12:22 SP TYPE: FEM HEAD OTHR DR: Niya Hernandez, KEVIN Tissues: Femoral region, NOS Procedures: Decalcification bone/plaque Surgery Specimen Level V HEADER OPERATION: ERAS, total hip anterior approach PRE-OP DIAGNOSIS: Right hip secondary osteoarthritis, dysplasia TISSUE SUBMITTED: Right femoral head MICROSCOPIC DIAGNOSIS Right femoral head, total hip replacement/resection: Femoral head with degenerative osteoarthritic changes. Fragments of fibroadipose tissue, fibroconnective tissue and reactive synovial tissue. See comment. ANA:denisse 05/30/2022 COMMENT Multiple lymphoid aggregates are noted. Immunohistochemistry ([id number]) shows lymphoid aggregates to be polytypic in nature, favor benign. Case has been reviewed in consultation with Dr. Cantu who concurs with the above diagnosis. IDC:AM MICROSCOPIC DESCRIPTION Slides are reviewed. GROSS DESCRIPTION Received is one container labeled with the patient's name and designated right femoral head. The specimen consists of a curtis femoral head that is partially distorted and measures 5.5 x 5.5 x 4.5 cm. The articular surface displays prominent osteophyte formation, eburnation and bone erosion. Also present in the specimen container are multiple irregular fragments of bone reamings and pink-yellow soft tissue measuring in aggregate 5 x 4 x 1 cm. Pump Tender sections are submitted in four cassettes as follows: 1 & 2 - soft tissue, 3 & 4 - femoral head after decalcification. / ANA:denisse 05/24/2022 TC:5 CPT: 52268, 96727
--- NOTE | 2022-05-23 13:25 | RAD_ITS ---
STUDY: X-RAY - PELVIS AND RIGHT HIP REASON FOR EXAM: Female, 56 years old. New Total Hip Arthroplasty . Intraoperative digital documentation images. TECHNIQUE: 4 intraoperative digital documentation views of the pelvis and hip. COMPARISON: September 25, 2021. FINDINGS: 4 intraoperative digital documentation views show new total hip arthroplasty on the right in anatomic alignment without complications. RAD/Hip 1 view with Pelvis IMPRESSION: New right total hip arthroplasty in anatomic alignment without complications. Electronically Signed: Victor Manuel Jiménez, at 15:13 EST ,
--- NOTE | 2022-05-23 14:40 | RAD_ITS ---
EXAM: XR RIGHT HIP WITH PELVIS WHEN PERFORMED, 2 OR 3 VIEWS CLINICAL INDICATION: Post Op -- AP both hips on single brayan/lateral of op hip PACU TECHNIQUE: Two or three views of the right hip with pelvis when performed. This report was created using [employer]og[employer] report generation technology. COMPARISON: None. FINDINGS: BONES/JOINTS: Right hip prosthesis in place in satisfactory position. Advanced arthritic changes of the left hip noted. SOFT TISSUES: Normal. No soft tissue swelling or gas. RAD/Hip Min 2 Views (Portable) IMPRESSION: Satisfactory postop appearance of the right hip prosthesis. Prominent arthritic changes of the left hip. Electronically Signed: Winston Sky MD at 14:56 EST ,
[2022-05-23] MEDS: Lactated Ringers 1,000 ML 125 ML IV (15:24)
[2022-05-23] MEDS: Cefazolin 1 GM/50 ML BAG IV (21:28)
[2022-05-23] MEDS: Senna/Docusate Sodium 1 Tablet 2 TABLET PO (21:45)
[2022-05-24] MEDS: Cefazolin 1 GM/50 ML BAG IV (04:27)
[2022-05-24 04:35] VITALS: BP 121/69; PULSE 69; RESP 16; TEMP 36.5; O2SAT 100
[2022-05-24 05:48] LABS: Hematocrit 31.3 % (37-47); Hemoglobin 10.4 g/dL (12.0-15.0); Mean Corp Hgb Conc 33.2 g/dL (32-36); Mean Corpuscular Hgb 29.8 pg (27.0-32.0); Mean Corpuscular Volume 89.7 fL (81-99); Mean Platelet Vol. 10.6 fl (6.2-12.0); Platelet Count 229 K/mm3 (150-450); RBC Distribution Width CV 12.7 % (11.6-14.6); Red Blood Count 3.49 M/mm3 (4.2-5.4); White Blood Count 10.6 K/mm3 (4.4-11.0)
[2022-05-24 06:08] LABS: Anion Gap 9 (5-15); BUN 12 mg/dL (7-18); BUN/Creat Ratio 19.5 RATIO (10-20); Calcium,Total 8.5 mg/dL (8.5-10.1); Chloride 97 mmol/L (98-107); Creatinine, Serum 0.62 mg/dL (0.55-1.02); EST Glomerular Filtration Rate 106 mL/min (>60); Est Glom Filt Rate - Afr Amer 128 mL/min (>60); Estimated Creatinine Clearance 106.95 ml/min; Glucose 120 mg/dL (74-106); Potassium 3.8 mmol/L (3.5-5.1); Sodium Level 131 mmol/L (136-145)
[2022-05-24] MEDS: Acetaminophen 500 MG Tablet 1000 MG PO ×2 (06:49→14:10)
[2022-05-24] MEDS: oxyCODONE 5 MG Tablet PO ×3 (06:49→15:05)
--- NOTE | 2022-05-24 09:36 | PCM.PN.ORT ---
Subjective Subjective The patient was sitting in bedside chair upon examination with her present. Patient denies any chest pain, shortness of breath, dizziness, lightheadedness, nausea or vomiting, or calf pain. Pain is controlled on medications. No adverse overnight events. Overall patient is doing very well this morning. She does have some thigh discomfort but otherwise no other complaints. Patient does have a diagnosis with antiphospholipid syndrome and currently takes Coumadin. She has been managed perioperatively by outside physician for bridging with Lovenox while she comes off the Coumadin. She does have that medication at home. She will be resumed on Coumadin today. She will continue to follow-up with outside provider for INR checks and continued management of the Lovenox and Coumadin. Objective Data Objective Data Vital Signs: Vital Signs Temp Pulse Resp BP Pulse Ox O2 Del Method O2 Flow Rate 97.7 F L 69 16 121/69 H 100 Room Air 4 05/24/22 04:35 05/24/22 04:35 05/24/22 04:35 05/24/22 04:35 05/24/22 04:35 05/24/22 04:35 05/23/22 15:30 Oxygen Flow Rate (L/min) 4 Oxygen Delivery Method Room Air Weight: 98 kg Body Mass Index (BMI) 30.9 Intake & Output: Intake and Output for Last 24 Hours 05/22/22 05/23/22 05/24/22 23:59 23:59 23:59 Intake Total 3048.67 / 3048.67 450 / 450 Balance 3048.67 / 3048.67 450 / 450 Lab / Micro Data Result Diagrams: 05/24/22 04:26 05/24/22 04:26 Labs: Laboratory Results - last 24 hr 05/23/22 10:35: POC PT 15.5 H, INR 1.3 05/23/22 10:59: POC Glucose 102 05/24/22 04:26: WBC 10.6, RBC 3.49 L, Hgb 10.4 L, Hct 31.3 L, MCV 89.7, MCH 29.8, MCHC 33.2, RDW Std Deviation 42.0, RDW Coeff of Bonnie 12.7, Plt Count 229, MPV 10.6 05/24/22 04:26: Sodium 131 L, Potassium 3.8, Chloride 97 L, Carbon Dioxide 25.0, Anion Gap 9, BUN 12, Creatinine 0.62, Estim Creat Clear Calc 106.95, Est GFR (MDRD) Af Amer 128, Est GFR (MDRD) Non-Af 106, BUN/Creatinine Ratio 19.5, Glucose 120 H, Calcium 8.5 Micro: Microbiology 05/10/22 09:52 Swab (Method) Nasal Screen MRSA/MSSA - Final Radiography Diagnostic Testing: Radiology Impression Hip/Pelvis X-Ray 05/23/22 13:25 IMPRESSION: New right total hip arthroplasty in anatomic alignment without complications. Electronically Signed: Victor Manuel Jiménez, at 15:13 EST , Hip X-Ray 05/23/22 14:40 IMPRESSION: Satisfactory postop appearance of the right hip prosthesis. Prominent arthritic changes of the left hip. Electronically Signed: Winston Sky MD at 14:56 EST , Physical Exam Narrative Vital signs stable and afebrile. SCDs and KOTA hose are in place bilaterally Patient is able to plantarflex and dorsiflex actively. Sensation is intact to light touch to saphenous, sural, superficial and deep peroneal, and tibial distribution. Dressing is clean dry and intact. Negative Homans bilaterally, negative signs and symptoms of DVT. Const alert, oriented x3 and no apparent distress Assessment & Plan Assessment/Plan (1) S/P total right hip arthroplasty: PLAN: 1. S/P right direct anterior total hip arthroplasty POD #1 2. Continue Pain Medications: Tylenol and oxycodone 3. DVT Prophylaxis: Patient will have her Coumadin restarted today. She is being bridged with Lovenox while in the hospital. She has been followed by outside physician for perioperative management of the Lovenox and Coumadin. She states she has appointment for INR check. They will continue to manage patient on the Lovenox and take her off when she is at therapeutic level. She has the Lovenox at home. 4. PT/OT: Weightbearing as tolerated with walker 5. H & H: 10.4/31.3, asymptomatic. Postoperative anemia secondary to acute blood loss from surgery without any intra operative complications. 6. Encouraged Incentive Spirometry 7. Disposition: Plan will be for discharge home today as long as pain is well controlled, patient is medically stable and tolerates physical therapy. She would like her prescriptions E scribed to [facility] pharmacy. She has outpatient physical therapy established. She will follow-up per postop instructions. Patient will be managed by outside provider for her Lovenox and Coumadin management. She has Lovenox at home. I instructed the patient to contact her office if she has any concerns or complications upon discharge. I have reviewed the [place] Automated Rx Reporting System (OARRS) report for this patient for refill pattern and other prescriber involvement as part of the appropriate surveillance for the provision of acute and chronic controlled medications. The report was requested and reviewed on the date of this entry and was considered in the prescribing process. This dictation was created using voice recognition software. Phonetic and/or grammatical errors may exist. (2) Anti-phospholipid syndrome:
--- NOTE | 2022-05-24 09:45 | DCINST_ITS ---
Discharge Instructions Diet Discharge Diet: No restrictions Activity Discharge Activity: May Not Drive (No driving for 6 weeks postoperatively. ) May shower in (days): 1 (only if incision is dry and without drainage. Do NOT soak/submerge in tub/pool/yates/stream/hot tub.)) Ice area for (Minutes): 20 (Every 1-2 hours while awake[address] barrier between ice and skin.) Weight Bearing Status: Weight bearing as tolerated Keep extremity elevated above heart level: Operative Extremity Additional Activity Instructions:: Follow [facility] Post-op Instructions. Once postoperative dressing has been removed only use gentle soap and water over the incision. Do not use any ointments, Neosporin, salves, alcohol pads over the incision for 6 weeks postoperatively. Do not submerge underwater for 6 weeks postoperatively. Wear elastic stockings for 2 weeks. Do NOT use alcohol with narcotic pain medication. Do NOT make important decisions while taking narcotic medication. If you have problems with taking your medication (rash, itching, nausea, etc.) call the office at once. Dressing / Incision Call your doctor if your incision/area has: Continuous Slow Oozing, Sudden Increased Bleeding, Increased Pain/ Swelling, Increased Redness and Foul Smelling Discharge Call your doctor if you observe: Fever of 101 or Higher, Shortness of breath, Chest pain, Calf discomfort and Uncontrolled pain Remove Dressing in: 4 days (Okay to remove dressing on May 28, 2022) Additional Dressing/Incision Instructions:: Follow [facility] Post-op Instructions. Once postoperative dressing has been removed, only use gentle soap and water over the incision. Do not use any ointments, Neosporin, salves, alcohol pads over the incision for 6 weeks postoperatively. Do not submerge underwater for 6 weeks postoperatively. Continue with KOTA hose/elastic stockings for 2 weeks postoperatively. May remove at nighttime but needs to be placed back on the leg during the day. Do NOT use alcohol with narcotic pain medication. Do NOT make important decisions while taking narcotic medication. If you have problems with taking your medication (rash, itching, nausea, etc.) call the office at once. Follow Up Care Test Results: Test results from this visit will be discussed in further detail at your follow- up appointment, if applicable. Discharge Plan Admission Admit Date/Time: 05/23/22 17:02 Attending Provider: Mary,Surjit Primary Care Provider: Niya Hernandez Discharge Orders/Prescriptions Prescriptions: New acetaminophen 500 mg Tablet 1,000 mg PO TID Qty: 0 0RF Rx Instructions: Do not take more than 3000 mg Tylenol in a 24-hour period. sennosides-docusate sodium [Stool Softener-Stimulant Laxat] 8.6-50 mg Tablet 2 tab PO BID Qty: 14 0RF Rx Instructions: Take until first bowel movement, then as needed oxycodone 5 mg Tablet 5 - 10 mg PO Q4H PRN PRN (Reason: Pain Score 4-10) 5 Days Qty: 42 0RF Continued lisinopril-hydrochlorothiazide 10-12.5 mg tablet 1 tab PO DAILY atenolol 50 mg tablet 50 mg PO BID fexofenadine [Kenia Allergy] 60 mg tablet 60 mg PO DAILY multivitamin Tablet 1 tab PO DAILY warfarin 2.5 mg tablet 2.5 mg PO MOWEFRSA Rx Instructions: M, W, F, Sa warfarin 5 mg tablet 5 mg PO SUTUTH Rx Instructions: T, Th, Anthony enoxaparin 100 mg/mL syringe 100 mg subcut BID Discontinued acetaminophen 500 mg Tablet 1,000 mg PO BID PRN (Reason: hip pain) Referrals / Follow Up: Physical,Therapy [Other] - 05/28/22 Niya Hernandez NP-C [Primary Care Provider] - Chris Olivares PA-C [Med Staff - [facility]] - 06/07/22 1:45 pm Disposition Disposition (needs filled in before D/C Order can be placed): Home, Self Care
--- NOTE | 2022-05-24 10:15 | CASEMGMT ---
BOOGIE CASTELAN Assessment: Face to Face with pt for initial transition planning/care coordination assessment. RN ANNELISE introduced self and role at [facility], pt voices understanding and consents to assessment. Pt is A/O x4 and answers all questions appropriately at this time. Pt sitting up in chair with at bedside. Care providers, pharmacy, and demographics verified/updated. Admitting Dx: R total hip anterior PCP:David Specialists:luis Hernandez; nicolás Franco Preferred Pharmacy: [facility] Retail Insurance: [employer] Prescription Benefit: yes LNOK: Severo Cooney, Living Arrangements: Pt lives with in a bilevel home with no steps to enter. Pt reports she is I in ADL's and denies concerns at home. Transportation: Pt drives self and denies concerns with transportation. Pt will transport her to medical appts until she is able. DME/HHC/SNF: Pt has a FWW at home, denies hx of HHC or SNF stays. Pt states no concerns with going home at time of dc. She has outpt therapy set up at [facility] on Saturday. Pt has given lovenox injections before ( the last 3 days per her report) and is comfortable doing this. Pt states no further concerns/needs. CM to follow. Advised pt to ask CM if any further question/concerns/needs arise, voices understanding. Pt Goal: Home with outpt therapy set up Plan: Home with outpt therapy set up
[2022-05-24 10:38] VITALS: BP 123/69; PULSE 82; RESP 18; TEMP 3.1; TEMP 37.5; O2SAT 100
[2022-05-24] MEDS: hydroCHLOROthiazide 12.5mg 12.5 MG PO (10:55)
[2022-05-24] MEDS: Senna/Docusate Sodium 1 Tablet 2 TABLET PO (10:55)
[2022-05-24] MEDS: Multivitamins,Therapeutic Tablet 1 TABLET PO (10:55)
[2022-05-24] MEDS: Lisinopril 10 MG Tablet PO (10:56)
[2022-05-24] MEDS: Loratadine 10 MG Tablet PO (10:56)
[2022-05-24] MEDS: Enoxaparin 100 MG/ML Syringe SC (10:56)
[2022-05-24] MEDS: Atenolol 50 MG Tablet PO (10:56)
[2022-05-24 14:12] VITALS: BP 120/74; PULSE 79; RESP 18; TEMP 2.8; TEMP 37; O2SAT 100
== END 2022-05-24 15:25 | disposition home or self-care (01) ==
LOC: SDC 17:22 → MS3 17:22
PROVIDERS: Anesthesiology; Admitting Provider Specialist; PCP Nurse Practitioner Family; Visit Provider Specialist
PROC: (CPT 27284; principal; 2022-05-23 12:50)
DX: M16.0 Bilateral primary osteoarthritis of hip (principal); D68.61 Antiphospholipid syndrome; E78.00 Pure hypercholesterolemia, unspecified; Z79.01 Long term (current) use of anticoagulants; K21.9 Gastro-esophageal reflux disease without esophagitis; I10 Essential (primary) hypertension; Z79.899 Other long term (current) drug therapy; Z86.718 Personal history of other venous thrombosis and embolism; Q65.89 Other specified congenital deformities of hip
CPT/HCPCS: 27130; 01214; 36415; 36416; 73501; 73502; 76000; 80048; 82040; 82962; 83036; 83735; 85025; 85027; 85610; 87081; 88307; 88311; 88341; 88342; 96365; 96366; 96372; 97162; 97166; 99221; 99252; C1776; J7120; G0378; G0463; J2405; J3475

== ENCOUNTER 2022-08-06 11:34 | Outpatient (RCR) | payer OTHER, SELFPAY ==
[2022-08-06 12:01] LABS: Prothrombin Time Fingerstick 32.1 SEC (11.7-14.9)
== END 2022-08-17 21:00 | disposition home or self-care (01) ==
LOC: LAB 11:34
PROVIDERS: PCP Nurse Practitioner Family
DX: I82.409 Acute embolism and thrombosis of unspecified deep veins of unspecified lower extremity (principal)
CPT/HCPCS: 36416; 85610

== ENCOUNTER → 2022-12-03 | Outpatient (CLI) | payer OTHER, SELFPAY ==
[2022-12-03 07:03] LABS: Prothrombin Time (Protime)PT. 12.9 SECONDS (11.7-14.9)
[2022-12-03 07:04] LABS: Partial Thromboplast Time 27.6 Seconds (24.1-36.2)
[2022-12-03 10:34] LABS: D-Dimer Quantitative (DVT/PE) 0.33 FEU/ug/m (0.27-0.49)
== END | disposition home or self-care (01) ==
PROVIDERS: PCP Nurse Practitioner Family; Referring Provider Internal Medicine Medical Oncology; Visit Provider Internal Medicine Medical Oncology
DX: D68.59 Other primary thrombophilia (principal)
CPT/HCPCS: 36415; 85379; 85610; 85730

== ENCOUNTER 2023-01-02 07:27 | Day surgery (SDC) | payer OTHER, SELFPAY ==
--- NOTE | 2022-12-19 06:45 | EKG12_ITS ---
Test Reason : PRE OP Blood Pressure : / mmHG Vent. Rate : 079 BPM Atrial Rate : 079 BPM P-R Int : 166 ms QRS Dur : 088 ms QT Int : 380 ms P-R-T Axes : 064 066 046 degrees QTc Int : 435 ms Normal sinus rhythm Normal ECG Confirmed by ADE ZARATE, MADELAINE ([id number]), technical writer and editor KENYA FRANCISCO ([id number]) on 12/20/2022 9:00:02 AM Referred By: Surjit Hernandez Confirmed By:MISTY BOOKER MD
[2022-12-19 07:39] LABS: Albumin, Serum 3.8 g/dL (3.2-5.0)
[2022-12-19 14:31] LABS: Absolute Lymphocyte Count 1.46 X10^3/uL (0.83-4.51); Absolute Neutrophil Count 2.6 X10^3/uL (2.0-7.7); Basophil# 0.04 X10^3/uL; Basophil% 0.9 % (0-1); Eosinophil# 0.09 X10^3/uL; Hematocrit 41.4 % (37-47); Hemoglobin 13.6 g/dL (12.0-15.0); Lymphocyte # 1.46 X10^3/ul (0.83-4.51); Lymphocyte % 32.2 % (19-41); Mean Corp Hgb Conc 32.9 g/dL (32-36); Mean Corpuscular Hgb 29.7 pg (27.0-32.0); Mean Corpuscular Volume 90.4 fL (81-99); Monocyte# 0.38 X10^3/uL; Monocyte% 8.4 % (0-10); NRBC Flagged by Analyzer 0 % (0-5); Neutrophil # 2.55 X10^3/uL (2.7-7.7); Neutrophil % 56.3 % (47-70); Platelet Count 267 K/mm3 (150-450); RBC Distribution Width CV 12.8 % (11.6-14.6); RBC Distribution Width SD 41.5 fl (35.1-43.9); Red Blood Count 4.58 M/mm3 (4.2-5.4); White Blood Count 4.5 K/mm3 (4.4-11.0)
--- NOTE | 2022-12-26 14:19 | HP.PCM_ITS ---
HPI - General HPI Narrative JEF CROW, is a 57 F who presentsHistory and Physical? Patient Name: Jef HodgesOB: 1965 From:? CLARA MERINO PA-C? DATE OF PRE-OPERATIVE EXAM: 12/24/2022 DATE OF SURGERY:? 01/02/2023 SCHEDULED PROCEDURE: anterior left total hip arthroplasty HISTORY OF PRESENT ILLNESS: Patient is a 57-year-old female with ongoing left hip pain for at least 10 years.? It is a constant dull and aching pain in the groin region.? It is worse with stairs, walking any distances or sitting for extended periods of time, as well as driving.? She has to continuously move positions to alleviate pain as well as standing and walking.? Patient states she has a significant decrease in functional limitations due to her ongoing hip pain such as bathing and showering, dressing herself, housework, shopping and leisurely activities such as walking and playing with her grandchildren.? She has attempted rest, ice, heat, elevation, compression, physical therapy, home exercises, care aide as well as oral medications to alleviate her pain.? She has not had any success and relief of pain with conservative treatment options would like to proceed with a direct anterior left total hip arthroplasty. REVIEW OF SYSTEMS: Review Of Systems: Constitutional: Denies change in appetite, fever and weight change. Cardiovasular: Denies chest pain, heart murmur and irregular heartbeat. Respiratory: Denies cough, pneumonia, shortness of breath, tuberculosis and wheezing. Gastrointestinal: Reports heartburn, but denies constipation, diarrhea, nausea, rectal itching, bloody stools and vomiting. Musculoskeletal: Denies leg swelling, pain, trouble walking and weakness. Skin: Reports tattoo, but denies Raynaud's and history of shingles. Neurological: Denies ambulatory dysfunction, dizziness, numbness/tingling and tremor. Psychiatric: Denies anxiety, insomnia and stress. Hematologic/Lymphatic: Denies anemia, bleeding/bruising tendency and past transfusion. Reviewed, no changes. PAST MEDICAL HISTORY: Advance Care Plan: Other Directive, LIVING WILL Effective Date: 01/15/2022 Other Directive, POA Effective Date: 01/15/2022 Past Medical History: Medical Problems: Acid Reflux, Arthritis, High Blood Pressure, Hypercholesterolemia, History Of Blood Clots/ DVT Accidents: None Surgical Hx: Right Total Hip Replacement - (05/23/2022) DR. HERNANDEZ @ [facility] Anesthesia Complications: None Assistive Devices: Glasses Reviewed, no changes. 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.Work Status: Currently Working.Hand Dominance: Right-handed. Personal Habits:? Cigarette Use: Never Smoked Cigarettes.Smokeless Tobacco: Never Used Smokeless Tobacco.E-Cigarette Use: Never used.Alcohol: Occasionally.Drug Use: Denies Use.Enjoy Exercising: Exercises 1-3 x/month. Reviewed and updated. VITALS: Ht: 69.5 Wt: 216lb Wt k.978 BMI: 31.4 BP: 130/76 Pulse: 81 Resp: 18 T: 97.7 T: 36.5C Pain Level: 5 O2SatR: 97 ALLERGIES: Sulfa? MEDICATIONS: Oxycodone HCL 5 mg 1-2 tab by mouth every 4-6 hours prn pain, Zofran 4 mg one by mouth every 8 as needed nausea, Chlorhexidine Gluconate? 4% solution 4 milliliters bottle for pre-operative showering, Xarelto 10 mg 1 by mouth every day x 2 weeks, Meloxicam 15 mg 1 by mouth every day, Amoxicillin 500 mg 4 by mouth 1 h prior to dental procedure, Acetaminophen 500 mg Do not take more than 3000 mg Tylenol in a 24-hour period., Lisinopril-Hydrochlorothiazide 10-12.5 mg 1 by mouth every day, Atenolol 50 mg 1 by mouth every day, Fluticasone Propionate Nasal [place] Allergy Relief 24- Hour 50 mcg/Act, Kenia Allergy 60 mg 1po guan, Multi Vitamin? take one(1) tablet daily., Vitamin D3 25 mcg (1000 Ut) 1 a day, Ensure High Protein? 2 daily PRE-OP EXAM:? General appearance:NORMAL? ? ? Other: Eyes: Conjunctivae and lids: NORMAL? Pupils: ERR Ears, Nose, Mouth, and Throat: NORMAL? Other: Inspection of lips, teeth and gums: NORMAL? ?Other: Neck: Examination of neck: no masses noted. Respiratory: Assessment of respiratory effort: NORMAL? ?Other: ?Auscultation of lungs: clear to auscultation no wheezes, rhonchi or rales. Cardiovascular:? Auscultation of heart: regular rate and rhythm, no murmurs, gallops or rubs. Exam of carotid arteries: NORMAL? ?Other: Gastrointestinal:? Exam of abdomen: soft, nontender, nondistended bowel sounds present. Lymphatic:? Palpation of nodes in neck:? NORMAL? ? ?Other: ? Palpation of nodes in Axillae: NORMAL? ?Other: Neurological: see below Psychiatric:? Orientation to time, place and person: NORMAL? ? ?Other: ?Mood and affect: NORMAL? ?Other: PHYSICAL EXAMINATION: Exam: Const: Appears healthy. No signs of apparent distress present. Alert and oriented x 3. Musculo: Flexed hip gait, patient uses both arms to get out of a chair Hips: ?Insp/Palp: 10 degree flexion contracture bilaterally. Right hip: flexion 40 degrees, internal rotation neutral. Obligatory external rotation with flexion. Left hip: obligatory external rotation with flexion, flexion 50 degrees, internal rotation neutral. No redness in groin skin crease. Skin: Skin is warm, dry and intact. Neuro: Sensation to light touch is intact in the lower extremities deep peroneal, lower extremities dorsal cutaneous, lower extremities saphenous, lower extremities sural and lower extremities tibial nerve distribution. IMAGING STUDIES: Complete series of the left hip with AP pelvis, AP hip and crossfire lateral reviewed today reveal joint space narrowing, subchondral sclerosis and osteophyte formation consistent with severe stage IV [id number] osteoarthritis there is evidence of a shallow acetabulum and superior migration of the hip center of rotation consistent previous hip dysplasia. IMPRESSION: 1. grade iv osteoarthritis let hip? 2. Acid Reflux 3. Arthritis 4.? High Blood Pressure 5. Hypercholesterolemia 6. History Of Blood Clots/ DVT PLAN: Patient denies history of DVT or PE, open wounds or sores over the body, no allergies to antibiotics and no current antibiotic use. No current dental issues DVTPPX full course to be determined:?? xarelto 10mg once daily x 2 weeks? followed by asiprin 81mg BID x 4 weeks for DVT prophylaxis postoperatively vs. She states her receptionist/telephone operator is recommending Xarelto ?3 months to prophylaxis status post total joint arthroplasty after her unprovoked DVT. At this time patient has consented to proceed with a Direct anterior left total hip arthroplasty.? Dr. Hernandez did discuss and review with the patient all treatment options including surgical versus nonsurgical options.? Patient does wish to proceed with the above-stated procedure.? Potential risk, benefits, and complications of the procedure were discussed in detail including but not limited to , infection, nerve and blood vessel damage, persistent pain, numbness, tingling, paresthesias, blood clot, pulmonary embolism, and req uirement for possible further surgery.? The patient expressed full understanding and has no further questions for the doctor.? Patient does agree to proceed with the above-stated procedure and has signed the surgery consent form. I have reviewed the [place] Automated Rx Reporting System (OARRS) report for this patient for refill pattern and other prescriber involvement as part of the appropriate surveillance for the provision of acute and chronic controlled medications.? The report was requested and reviewed on the date of this entry and was considered in the prescribing process. Discussed with the patient the risks associated with the COVID-19 virus including the risk of exposure while at the hospital.? The patient was reassured local hospitals have low infection rates and taken all necessary precautions to limit patient exposure to COVID-19.? Limiting the patient's time in the hospital may decrease their exposure to COVID-19.? The patient was notified that we will need to comply with any screening or testing the hospital wishes to perform and that surgery may be delayed for any positive test results. [facility] Medical History Anti-phospholipid syndrome Cardiology follow-up encounter Dietary restriction DVT (deep venous thrombosis) Easy bruising Elevated liver function tests Essential (primary) hypertension Fatty liver Gastric reflux High cholesterol Hip dysplasia History of echocardiogram History of stress test Hypercholesterolemia Hypertension Leg cramps Non-smoker Post-menopausal Seasonal allergies Shortness of breath on exertion Wears glasses Home Medications atenolol 50 mg tablet 50 mg PO BID 08/28/18 [History Last Taken 05/23/22] lisinopril 10 mg-hydrochlorothiazide 12.5 mg tablet 1 tab PO DAILY 08/28/18 [History Last Taken 02/19/22] multivitamin 1 tab PO DAILY 11/24/20 [History Last Taken Unknown] fluticasone propionate 50 mcg/actuation nasal spray,suspension (Flonase Allergy Relief) 1 spray intranasal DAILY 08/07/22 [History Last Taken Unknown] cholecalciferol (vitamin D3) 50 mcg (2,000 unit) capsule (Vitamin D3) 50 mcg PO DAILY 12/10/22 [History Last Taken Unknown] loratadine 10 mg tablet (Claritin) 10 mg PO DAILY 12/10/22 [History Last Taken Unknown] Allergy/AdvReac Type Severity Reaction Status Date / Time Sulfa (Sulfonamide AdvReac Nausea/Vom/ Verified 12/11/22 16:08 Antibiotics) Diarrhea Family History Father Heart disease Neoplasm of lung Hypertension Sister Carcinoma of breast Aunt Carcinoma of breast Uncle Cancer colon Grandmother Arthritis Mother Colon cancer Surgical History History of colonoscopy History of surgery S/P hip replacement Social History adopted: No household members: spouse housing: house number of children: 3 current occupational status: employed current occupation: Utilization management for [employer] sexually active: Yes Smoking Status: Never smoker alcohol intake: current alcohol intake frequency: holidays/special occasions only substance use type: does not use well-balanced diet: about half the time caffeine: Yes Type: coffee Number of servings: 2 what type of physical activity do you participate in: none seatbelt use: always do you feel safe at home: Yes additional social history: - Severo- Retired Results Lab / Micro Data 12/19/22 06:47
[2023-01-02] VITALS (12 sets, daily range): BP systolic 110–144; BP diastolic 54–88; PULSE 62–84; RESP 16–18; TEMP 35.7–36.7; O2SAT 99–100; BMI 30.7
--- NOTE | 2023-01-02 07:03 | PCM.OPRPT ---
Report of Operation Date of Procedure: 01/02/23 Pre-Operative Diagnosis: Left hip primary osteoarthritis Post-Operative Diagnosis: Left hip primary osteoarthritis Surgery/Procedure Performed:: Left minimally invasive direct anterior hip replacement Description of Surgical Findings:: Stable hip with equal leg lengths Surgeon: Surjit Hernandez call center rn: Chris Olivares Type of Anesthesia: Spinal Anesthesiologist: Kedar Kirkpatrick Special Medications: 2 g Ancef, 1 g TXA at incision, 1 g TXA closure, 10 mg Decadron, joint cocktail (5 mg Duramorph, 30 mL of 0.5% Ropivicaine, 1000 units of epinephrine, 30 mg of Toradol) Specimen's removed: Bony cuts Estimated Blood Loss (mL): 400 Fluids Replaced: 1200 ML Description of Procedure: Components used: 1. Insignia Carleton femoral stem size 4 high offset 2. Carleton trident 2 acetabular shell size 54 mm 3. [place]leton X3 polyethylene E 4. [place]leton Biolox delta 36 mm, 2.5mm femoral head Brief history operative indications: 57 yo F who failed conservative measures for their hip osteoarthritis. X-rays were consistent with osteoarthritis including joint space narrowing, osteophyte formation and subchondral cysts. Total hip replacement was discussed with the patient with risks and benefits including but not limited to blood loss, DVTs, PEs, neurovascular damage, dislocation, general risks of anesthesia including loss of life. Patient demonstrated an understanding medical clearance is obtained the patient was consented for surgery. Procedure: On the date of procedure the patient's L hip was marked in the preoperative area. Patient was then taken back to the operating room where anesthesia assumed control of the C-spine and airway and administered anesthetic. Patient was transferred to the operating table and placed in the supine position. The hips were placed at the break of the bed and a sacral bump was placed. L The lower extremity was then prepped out in a sterile fashion using chlorhexidine while the surgeon scrubbed. The PA was vital in the positioning of the patient. Upon reentering the room the left lower extremity was draped in the standard orthopedic fashion and the incision was marked. A timeout was called and everyone agreed upon the side, the site, the procedure be performed, antibody given, and patient's identity. At this time incision was made through skin, subcutaneous tissue, and fat down to fascia. The fascia was then incised and the TFL was retracted laterally. A retractor was placed on the lateral border of the femoral neck. Attention was directed to the inferior portion of the approach and all crossing vessels were identified and appropriately coagulated. A retractor was then placed on the medial portion of the femoral neck. The anterior capsule was then cleared of all soft tissue and then H shaped capsulotomy was made. The retractors were then placed inside the capsule. The femoral neck was identified and a cleanup cut was made. At this time a power corkscrew was used to remove the femoral head. Attention was then turned toward the acetabulum where the soft tissues were appropriately retracted and the acetabulum was sequentially reamed to 54 mm. A 54 mm cup was then selected and impacted into place. Acetabular liner was impacted into place and locking mechanism was verified. The position of the acetabular cup was then verified under live fluoroscopy. Attention was then turned to the femur. Soft tissue releases on the medial and lateral femoral neck were appropriately done, the leg was externally rotated and lateralized. A Dowling retractor was placed medially and proximally to the greater trochanter this allowed appropriate visualization and exposure of the femoral canal. Rongeour was then used to remove excess lateral bone. A canal finder and entry broach were used to open the proximal canal. Once we verified we were down the femoral canal we subsequently broached up to a size 4 femur. The appropriate neck was placed in the previously selected head was trialed with a 2.5 mm neck. Traction was pulled and the hip was reduced with internal rotation. Once it was appropriately reduced and stability was checked. There was minimal shuck, equal leg lengths and appropriate stability with hyperextension and external rotation as well as with 90? flexion and internal rotation. Fluoroscopy was then also used to verify the position of the components and leg lengths using the contralateral side for comparison. The trial components were then dislocated the proximal femur was again exposed and the components were removed from the wound. The final components were verified and opened. The wound was copiously irrigated out with normal saline. The acetabulum was checked for any residual debris. The final components were placed and impacted. Traction and internal rotation were again used to reduce the hip. After adequate reduction the hip remained stable with appropriate leg lengths. The final components were once again checked with live fluoroscopy and were found to be satisfactory. The wound was then copiously irrigated with normal saline once more, and hemostasis was obtained. Closure was then done using #1 Vicryl runner to close the fascia. A 2-0 vicryl interuppted sutures were used to close the subcutaneous skin. A 3-0 Monocryl and Steri-Strips were used for final skin closure. A Silverlon dressing was placed. Patient was awakened by anesthesia and [facility] Patient was then transferred to the PACU for recovery. During the course of the procedure the physician railway track plant operator (PE) played a vital role. Their intimate knowledge of my steps in the procedure aided in safe and expedient completion of the procedure. The PE played a vital rolls in positioning particularly in obtaining the appropriate positioning of the sacral bump. The PE was also vital in the retraction of soft tissues during the exposure and especially the femoral work as this is a vital part of the procedure to prevent complications and fractures. The PE was also vital and protecting soft tissues during times of bony cuts and reaming. He also played a vital role in closure with my direct supervision. The PE was also important during reduction and dislocation of the joint and trials intraoperatively. Postoperative plan: Patient will get 24 hours postop antibiotics. Patient will get in-house physical therapy and will be weight-bear as tolerated. Patient will follow up in office in 2 weeks for a wound check and x-rays. DVT prophylaxis: Xarelto 10 mg daily for X3 months per her furniture lumber production worker Complications No intraoperative complications Admit VTE Documentation VTE Present on Admission: No VTE Mechan Device Prophylaxis: SCD's and Thigh High KOTA Hose VTE Pharm Prophylaxis ordered?: Yes
[2023-01-02] MEDS: Lactated Ringers 1,000 ML 999 ML IV ×2 (07:40→12:40)
[2023-01-02] MEDS: Magnesium 1 GM over 15 mins IV (07:45)
[2023-01-02] MEDS: Acetaminophen 500 MG Tablet 1000 MG PO (08:17)
[2023-01-02] MEDS: Gabapentin 600 MG Tablet PO (08:17)
--- NOTE | 2023-01-02 10:00 | FEM_PTH ---
PATIENT: JEF CROW LOC: [facility] [place] U#:[id number] AGE/SX: 57/F ROOM: RE01/02/[address]: Dr. Surjit Hernandez MD : 1965 BED: DIS: 01/02/2023 SPEC #: [id number] RECD: 01/02/23 12:57 STATUS: ANDRÉS REQ #: [id number] DANGELO: 01/02/23 10:[address]: Surjit Hernandez DEPT: SURGICAL PATHOLOGY RECD BY: Piedad Womack ENTERED: 01/03/23 07:36 SP TYPE: FEM HEAD OTHR DR: Niya Hernandez, REMOTE PILOT OPERATOR-C Tissues: Femoral region, NOS Procedures: Decalcification bone/plaque Surgery Specimen Level V HEADER OPERATION: ERAS, anterior total hip arthroplasty PRE-OP DIAGNOSIS: Grade IV osteoarthritis left hip TISSUE SUBMITTED: Left femoral head MICROSCOPIC DIAGNOSIS Left femoral head, joint resection: Severe degenerative joint disease. AM/am 01/09/23 MICROSCOPIC DESCRIPTION Slides are reviewed. GROSS DESCRIPTION Received is one container labeled with the patient's name and designated left femoral head. The specimen consists of a distorted curtis femoral head that measures 6.0 x 6.0 x 4.5 cm. The articular surface displays prominent osteophyte formation, eburnation and bone erosion. Also present in the specimen container are multiple irregular fragments of bone reamings, bone fragments and pink-yellow soft tissue measuring in aggregate 10.0 x 10.0 x 2.0 cm. Industrial Hygiene Engineer sections are submitted in two cassettes as follows: 1 - soft tissue and bone reamings, 2 - bone after decalcification. / AM:denisse 01/03/2023 TC:5 [facility]: [id number]
[2023-01-02] MEDS: Cefazolin 2 GM in 0.9% Normal Saline 100 ML IV (10:55)
[2023-01-02] MEDS: dexAMETHasone 10 MG/ML Vial IV (11:00)
--- NOTE | 2023-01-02 11:43 | RAD_ITS ---
STUDY: X-RAY - PELVIS AND LEFT HIP REASON FOR EXAM: Female, 57 years old. Left total hip replacement. TECHNIQUE: 1 views of the pelvis and hip. COMPARISON: None. FINDINGS: Intraoperative imaging provided for left total hip placement . RAD/Hip 1 view with Pelvis IMPRESSION: Intraoperative imaging provided for left total hip replacement. Electronically Signed: Ronal Dugan MD at 14:00 EDT ,
[2023-01-02] MEDS: JPS (Morphine 10mg/ml) OPERA.SITE (11:57)
--- NOTE | 2023-01-02 13:00 | RAD_ITS ---
EXAM: XR LEFT HIP WITH PELVIS WHEN PERFORMED, 2 OR 3 VIEWS CLINICAL INDICATION: Total hip arthroplasty -- in PACU TECHNIQUE: Frontal view of the bilateral hips, crosstable lateral view including both hips. COMPARISON: No relevant prior studies available. FINDINGS: BONES/JOINTS: Well-positioned bilateral total hip prostheses components. No suspicious findings. Ossific density superior to the right greater trochanter incidentally noted. Intact pubic symphysis and pubic rami. No evidence of hip prosthesis dislocation. No displaced fracture. Sacroiliac joint is unremarkable. SOFT TISSUES: Unremarkable. No soft tissue swelling or gas. RAD/Hip Min 2 Views (Portable) IMPRESSION: Well-positioned bilateral hip prostheses. No acute findings. Electronically Signed: Ximena Zayas MD at 6:20 EDT ,
[2023-01-02] MEDS: Ketorolac 30 MG/ML Syringe IV (13:49)
[2023-01-02] MEDS: Lactated Ringers 1,000 ML 75 ML IV (13:53)
[2023-01-02] MEDS: Cefazolin 1 GM/50 ML BAG IV (14:00)
[2023-01-02] MEDS: oxyCODONE 5 MG Tablet PO (14:32)
== END 2023-01-02 16:11 | disposition home or self-care (01) ==
LOC: SDC 07:27 → AC 07:28
PROVIDERS: Anesthesiology; PCP Nurse Practitioner Family; Referring Provider Specialist; Visit Provider Specialist
PROC: (CPT 27284; principal; 2023-01-02 09:35)
DX: M16.12 Unilateral primary osteoarthritis, left hip (principal); K21.9 Gastro-esophageal reflux disease without esophagitis; R03.0 Elevated blood-pressure reading, without diagnosis of hypertension; E78.00 Pure hypercholesterolemia, unspecified; Z86.718 Personal history of other venous thrombosis and embolism
CPT/HCPCS: 27130; 01214; 36415; 73501; 73502; 76000; 82040; 83735; 85025; 87081; 88307; 88311; 93005; 97162; C1776; J7120; J2405; J3475

== ENCOUNTER 2023-02-01 08:30 | Outpatient (RCR) | payer OTHER, SELFPAY ==
--- NOTE | 2023-01-04 10:27 | HP.PTEVAL ---
Patient's Visit Information Visit Information Visit Information: JEF CROW is a 57 year old F referred to Physical Therapy by Dr. Surjit Hernandez MD with a diagnosis of Left THR Anterior Approach 01/02/23. Date of Evaluation: 01/04/23 Physical Therapist: Wendy Brewster DPT Visit Plan Frequency: 2-3x /Week Duration: 4 Weeks Plan: Left Anterior Approach THR 01/02/23- Focus on Functional Mobility- LE and core strength/stabilization, proprioception, muscular endurance HEP Given IE: Marching, HR/TR, SLR, Weight Shifts Subjective Subjective: Left THR Anterior Approach 01/02/[address] Hernandez at [facility]- wear and tear- right THR May 23, [address] Hernandez. She went home same day- lives with in a bilevel- no stairs to enter but a split level- 6 stairs to get to living- with handrails on both sides- no problems navigating. Fully I prior to surgery. 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 She feels more bruising than pain. Worst in the last 24 hours: 5-6/10 last night Agg: picking it up to move it. Eases: sitting and ice, standing still, movement. Best: 0/10. Pain is located in the thigh area- She does have some pain into the [place] but no pain in the back. Describes the pain as more of a dull and achy pains. Will follow up with MD in 2 weeks. No N/T in the toes. Still has bandage on the incision and has all the information for incision care. She has not been active due to the pain- her goals are to be more active and be able to go more places. Surgical Restrictions: just not out to the side. Sleep: recliner/bed alternating- sleep- disturbed. Medication- Tylenol and Oxy at this time. PMHx/Meds: no changes since d/c from hospital. Objective Objective: Posture: FH, RS- can correct with verbal cues Gait: step to pattern with FWW Stairs: asc/desc non recip with 2 HR HR/TR: able with UE A SLS: weight shift ant/post and lateral Sensation: WFL to gross touch bilateral LE Observation: did not see incision as it is still covered by bandage ROM: WFL in all planes Palpation: tender along thigh and throughout hip Strength: Ankle: 5/5, Knee: 4+/5, Hip: Extn: 38 Flexion:14- requires max A for SLR Bed Mobility: requires mod A to get left LE on/off plinth to get supine to sit and back Balance/Special Test Scores WOMAC Total Score: 37 WOMAC Percentatge: 59.7900 Goals Goal 1:: Patient will be I with HEP and progression Goal Time Frame: 4-6 Weeks Goal 2:: Patient will asc/desc 8 stairs recip with 1 HR Goal Time Frame: 4-6 Weeks Goal 3:: Patient will amb >300 feet with a normalized gait pattern Goal Time Frame: 4-6 Weeks Goal 4:: Patient will return to all normal ADL's with 0/10 pain Goal Time Frame: 4-6 Weeks Goal 5:: Patient will report 80% improvement Goal Time Frame: 4-6 Weeks Rehabilitation Potential Physical Therapy Diagnosis: Patient presents s/p Left THR Anterior Approach 01/02/23- she has hypomobility- she has decreased LE and core strength/stabilization, flex, and muscular endurance leading to abnormal gait pattern and decreased ability to perform ADL's. Rehabilitation Potential: Good Anticipated Interventions Patient/Client Instruction: Educate patient on: Benefits of Fitness Program Therapeutic Exercise to Include: Strength training, Endurance training, Balance training, Coordination, Agility training, Body mechanics, Postural training, Flexibilty training, Gait and locomotor training, Neuromotor development, Passive ROM, Active ROM, Dynamic Lumbar Stabilization and Scapular Strength/Stabilization For the Purpose of:: To improve muscle performance and motor function Functional Training to Include: Gait training Cryotherapy (ice pack, ice massage): Yes Thermo therapy (hot pack): Yes Text: Thank you for the opportunity to evaluate your patient. For Medicare and Medicare HMO plans, please review the plan of care and approve it. It will need to be FAXED BACK to us at [phone] for Medicare purposes. For Medicare only, by signing this I certify the plan of care. Please let me know if there are questions or concerns regarding this plan of care. Physician Signature: Date:
--- NOTE | 2023-02-01 09:31 | HP.PTREVAL_ITS ---
Re-Evaluation Intro: Dr. Surjit Hernandez MD, It has been my pleasure to treat JEF CROW over the last 8 visits for Left THR Anterior Approach 01/02/23. Please see the progress note below for an update on the physical therapy plan of care! Subjective Subjective: Pt. reports having 0/10 L hip. Pt. reports sleeping well. Objective Objective/Function: TU.1 sec without AD STAIRS: reciprocal with1 HR GAIT: Pt. ambulated 350' with out AD with fairly normal gait pattern. Occasional antalgic but overall good. ROM: L hip: flexion 95deg, abd 45deg, ext 10deg, ER/IR not tested. MMT: LLE: ankle and knee 5/5 throughout. L hip: flexion 4/5, abd 4/5, ext 4/5. Pt. is overall doing well. She plans on completing PT HEP I at this point in time. I talked to her about focusing increasing her walking at tolerance and adding in her hip strengthening exercises that I gave her today. Plan Plan Plan: Pt. to trial HEP on her own for 2 weeks then back to follow up with PT. If we dont hear from her during that time frame with will DC back to physician. Balance/Gait/Functional tests Balance/Special Test Scores TUG Test Time Seconds: 9.1 Tug Test: <10 sec.=free mobile WOMAC Total Score: 11 WOMAC Percentage: 88.5500 Goals Goals Goal 1:: Patient will be I with HEP and progression Goal Time Frame: 4-6 Weeks Goal Progress: Goal Met Goal 2:: Patient will asc/desc 8 stairs recip with 1 HR Goal Time Frame: 4-6 Weeks Goal Progress: Goal Met Goal 3:: Patient will amb >300 feet with a normalized gait pattern Goal Time Frame: 4-6 Weeks Goal Progress: Goal Met Goal 4:: Patient will return to all normal ADL's with 0/10 pain Goal Time Frame: 4-6 Weeks Goal Progress: Goal Met Goal 5:: Patient will report 80% improvement Goal Time Frame: 4-6 Weeks Goal Progress: Goal Met Anticipated Interventions Anticipated Interventions Patient/Client Instruction: Educate patient on: Benefits of Fitness Program Therapeutic Exercise to Include: Strength training, Endurance training, Balance training, Coordination, Agility training, Body mechanics, Postural training, Flexibilty training, Gait and locomotor training, Neuromotor development, Passive ROM, Active ROM, Dynamic Lumbar Stabilization and Scapular Strength/Stabilization For the Purpose of:: To improve muscle performance and motor function Functional Training to Include: Gait training Cryotherapy (ice pack, ice massage): Yes Thermo therapy (hot pack): Yes Re-Evaluation Ending Re-evaluation ending: Please do not hesitate to contact me at [phone] by phone or Fax: if you have questions or concerns regarding this new plan of care! Sincerely, KAILEY CoffeyT
--- NOTE | 2023-02-20 07:20 | HP.PT.NRP ---
Patient Information Patient Information: JEF CROW was seen in my office for initial evaluation on 01/04/23. The following Plan of Care was established for this patient: POC Established Initial Frequency: 2-3x /Week Initial Duration: 4 Weeks Anticipated Interventions Patient/Client Instruction: Educate patient on: Benefits of Fitness Program Therapeutic Exercise to Include: Strength training, Endurance training, Balance training, Coordination, Agility training, Body mechanics, Postural training, Flexibilty training, Gait and locomotor training, Neuromotor development, Passive ROM, Active ROM, Dynamic Lumbar Stabilization and Scapular Strength/Stabilization For the Purpose of:: To improve muscle performance and motor function Functional Training to Include: Gait training Cryotherapy (ice pack, ice massage): Yes Thermo therapy (hot pack): Yes Last Seen Last Seen: This patient was last seen in our office . Pertinent comments regarding their Physical therapy will appear below: Plan of Care on 02/01/23: Pt. to trial HEP on her own for 2 weeks then back to follow up with PT. If we dont hear from her during that time frame with will DC back to physician. As of 02/20/23 Pt has not had questions and is appropriate to be discharged at this time. At this point I will be discontinuing this patient from physical therapy. I would be happy to see this patient again in the future if found appropriate by the physician. Thank you! Wendy Brewster DPT Balance/Gait/Functional tests Balance/Special Test Scores TUG Test Time Seconds: 9.1 Tug Test: <10 sec.=free mobile WOMAC Total Score: 11 WOMAC Percentage: 88.5500
== END 2023-02-01 19:00 | disposition home or self-care (01) ==
LOC: PT 08:30
PROVIDERS: PCP Nurse Practitioner Family; Referring Provider Specialist; Visit Provider Specialist
DX: M16.12 Unilateral primary osteoarthritis, left hip (principal); M25.552 Pain in left hip
CPT/HCPCS: 97110; 97162; 97164

== ENCOUNTER → 2023-02-18 | Outpatient (CLI) | payer OTHER, SELFPAY ==
--- NOTE | 2023-02-18 15:35 | BI_ITS ---
MAMMOGRAPHY - BILATERAL SCREENING REASON FOR EXAM: Female, 57 years old. Routine annual screening examination. PERTINENT HISTORY: Sister with breast cancer. Aunt with breast cancer. TECHNIQUE: Digital bilateral breast queta (3D mammographic acquisition) in the CC and MLO projections. 2-D mediolateral oblique (MLO) and craniocaudad (CC) views of both breasts were obtained. CAD: Full Field Digital Mammography with Computer Added Detection was performed. COMPARISON: Comparison is made with prior study via January 29, 2022 and January 24, 2021. FINDINGS: Breast Composition: There are scattered areas of fibroglandular density. There are no dominant masses or suspicious calcifications. There is a stable 5 mm calcified nodule in the medial retroareolar region of the left breast. Stable small benign-appearing bilateral axillary lymph nodes. No other significant abnormalities are identified. There has been no significant change since the prior study. BI/SCRN MAMM (CAD)W/QUETA BILAT IMPRESSION: Stable bilateral screening mammogram. Yearly follow-up mammogram recommended. (A) ASSESSMENT CATEGORY: BIRADS Category 2: Benign. A letter regarding these results will be sent to the patient by the facility within 30 days. Approximately 10% of breast cancers are not detected by mammography. A normal mammogram should not delay biopsy of a clinically suspicious abnormality. [id number] Electronically Signed: Ronal Dugan MD at 8:16 EDT ,
== END | disposition home or self-care (01) ==
LOC: OPBI 15:34
PROVIDERS: PCP Nurse Practitioner Family; Referring Provider Nurse Practitioner Women's Health; Visit Provider Nurse Practitioner Women's Health
DX: Z12.31 Encounter for screening mammogram for malignant neoplasm of breast (principal); Z80.3 Family history of malignant neoplasm of breast
CPT/HCPCS: 77063; 77067

== ENCOUNTER → 2023-06-04 | Outpatient (CLI) | payer OTHER, SELFPAY ==
[2023-06-04 06:24] LABS: Bacteria 0 SEEN /hpf (None Seen); Mucous, Urine 0 SEEN /hpf (<or=2+); Red Blood Cells-Urine 0 SEEN /hpf (0-5)
[2023-06-04 07:56] LABS: Color, Urine Yellow (Yellow); Glucose, Dipstick Normal (Normal); Ketone-Dipstick Negative (Negative); Leukocyte Esterase-Dipstick 100 /ul (Negative); Nitrite-Dipstick Negative (Negative); Occult Blood-Urine Negative /ul (Negative); Protein-Dipstick 15 mg/dl (Negative); Urine Bilirubin Dipstick Negative (Negative); Urine Clarity Sl. Cloudy (Clear); Urine Urobilinogen Normal (Normal)
[2023-06-04 08:09] LABS: ALB/GLOB Ratio 0.9 RATIO (0.9-2.4); AST(SGOT) 69 U/L (15-37); Alanine Aminotransfer ALT/SGPT 74 U/L (13-56); Albumin, Serum 3.8 g/dL (3.2-5.0); Alkaline Phosphatase 105 U/L (45-117); Anion Gap 7 (5-15); BUN 13 mg/dL (7-18); BUN/Creat Ratio 18.9 RATIO (10-20); Calcium,Total 9.8 mg/dL (8.5-10.1); Chloride 106 mmol/L (98-107); Creatinine, Serum 0.69 mg/dL (0.55-1.02); EST Glomerular Filtration Rate 93 mL/min (>60); Est Glom Filt Rate - Afr Amer 112 mL/min (>60); Globulin 4.2 g/dL (2.2-4.2); Glucose 112 mg/dL (74-106); Sodium Level 138 mmol/L (136-145)
[2023-06-04 08:15] LABS: Squamous Epithelial Cells - UA 0-5 SEEN /hpf (5-10); Transitional Epithelial - Ur 0-5 SEEN /hpf (0-5); White Blood Cells 10-25 SEEN /hpf (0-5)
== END | disposition home or self-care (01) ==
LOC: LAB.FUTURE 06:23 → LAB 06:23
PROVIDERS: PCP Nurse Practitioner Family; Referring Provider Nurse Practitioner Family; Visit Provider Nurse Practitioner Family
DX: R80.9 Proteinuria, unspecified (principal)
CPT/HCPCS: 36415; 80053; 81001

== ENCOUNTER → 2023-09-20 | Outpatient (CLI) | payer OTHER, SELFPAY ==
--- NOTE | 2023-09-20 15:00 | RAD_ITS ---
HISTORY: LEFT FOOT PAIN. TECHNIQUE: XR Foot Min 3 Views. COMPARISON: None. FINDINGS: BONES : No acute fracture identified. Mild osteopenia. JOINTS: No dislocation. Mild degenerative change. RAD/Foot min 3 Views IMPRESSION: No acute fracture or dislocation identified in the left foot. Electronically Signed: Annita Pressley MD at 13:45 EDT ,
== END | disposition home or self-care (01) ==
LOC: RAD 14:59
PROVIDERS: PCP Nurse Practitioner Family; Referring Provider Nurse Practitioner Family; Visit Provider Nurse Practitioner Family
DX: M79.672 Pain in left foot (principal)
CPT/HCPCS: 73630

== ENCOUNTER → 2024-02-20 | Outpatient (CLI) | payer OTHER, SELFPAY ==
--- NOTE | 2024-02-20 15:44 | BI_ITS ---
MAMMOGRAPHY - BILATERAL SCREENING REASON FOR EXAM: Female, 58 years old. Routine annual screening examination. PERTINENT HISTORY: Sister with breast cancer. Aunt with breast cancer. TECHNIQUE: Digital bilateral breast queta (3D mammographic acquisition) in the CC and MLO projections. 2-D mediolateral oblique (MLO) and craniocaudad (CC) views of both breasts were obtained. CAD: Full Field Digital Mammography with Computer Added Detection was performed. COMPARISON: Comparison is made with prior study dated February 18, 2023 and January 29, 2022. FINDINGS: Breast Composition: There are scattered areas of fibroglandular density. There are no dominant masses or suspicious calcifications. Stable 5 mm calcified nodule in the medial retroareolar region of the left breast. Stable small benign-appearing bilateral axillary lymph nodes. No other significant abnormalities are identified. There has been no significant change since the prior study. BI/SCRN MAMM (CAD)W/QUETA BILAT IMPRESSION: Stable bilateral screening mammogram. Yearly follow-up mammogram recommended. (A) ASSESSMENT CATEGORY: BIRADS Category 2: Benign. A letter regarding these results will be sent to the patient by the facility within 30 days. Approximately 10% of breast cancers are not detected by mammography. A normal mammogram should not delay biopsy of a clinically suspicious abnormality. [id number] Electronically Signed: Ronal Dugan MD at 8:22 EDT ,
== END | disposition home or self-care (01) ==
LOC: OPBI 15:44
PROVIDERS: PCP Nurse Practitioner Family; Referring Provider Nurse Practitioner Women's Health; Visit Provider Nurse Practitioner Women's Health
DX: Z12.31 Encounter for screening mammogram for malignant neoplasm of breast (principal); Z80.3 Family history of malignant neoplasm of breast
CPT/HCPCS: 77063; 77067

== ENCOUNTER → 2024-03-25 | Outpatient (CLI) | payer OTHER, SELFPAY | END | disposition home or self-care (01) | LOC: RAD 12:06 | PROVIDERS: PCP Nurse Practitioner Family; Referring Provider Physician Assistant Surgical; Visit Provider Physician Assistant Surgical | DX: M25.551 Pain in right hip (principal); Z96.641 Presence of right artificial hip joint | CPT/HCPCS: 73502 ==

== ENCOUNTER → 2025-01-06 | Outpatient (CLI) | payer OTHER, SELFPAY ==
[2025-01-12 10:08] LABS: HPV APTIMA, High Risk Negative (Negative)
== END | disposition home or self-care (01) ==
LOC: LABSPEC 16:14
PROVIDERS: PCP Nurse Practitioner Family; Visit Provider Nurse Practitioner Women's Health
DX: Z12.4 Encounter for screening for malignant neoplasm of cervix (principal)
CPT/HCPCS: 87624; 88175; G0145

== ENCOUNTER → 2025-02-23 | Outpatient (CLI) | payer OTHER, SELFPAY ==
--- NOTE | 2025-02-23 06:57 | BD_ITS ---
PROCEDURE: DEXA BONE DENSITY STUDY 02/23/2025 REASON FOR EXAM: F, age 59 y/o . Postmenopausal. TECHNIQUE: Procedure Code: BDDBD Modality: DX Procedure: DEXA BONE DENSITY STUDY COMPARISON: None FINDINGS: BMD and T-SCORES Lumbar spine: 0.928 g/cm2, T-score -1.1 Levels: L1 through L4 Left 1/3 radius: 0.594 g/cm2, T-score 0.3 The World Health Organization has defined the following categories based on bone density: Normal bone density: T-score equal to or greater than -1.0 Osteopenia: T-score between -1.0 and -2.5 Osteoporosis: T-score equal to or less than -2.5 The patient does meet the pharmacological treatment recommendations for prevention of osteoporosis. BD/Dexa Bone Density Study IMPRESSION: OSTEOPENIA. Recommend follow-up as clinically warranted. Reading Location: [facility]
--- NOTE | 2025-02-23 07:30 | BI_ITS ---
EXAM: SCRN MAMM (CAD)W/QUETA BILAT DATE: 02/23/2025 CLINICAL HISTORY: F, Age 59 y/o , SCREENING Sister with breast cancer. Aunt with breast cancer. TECHNIQUE: Procedure Code: [id number] Modality: MG Procedure: SCRN MAMM (CAD)W/QUETA BILAT COMPARISON: Prior exam(s) dated February 21, 2024.. FINDINGS: TISSUE DENSITY: There are scattered areas of fibroglandular density. Bilateral Breast Mammographic Findings: No significant masses, calcifications or other abnormalities are identified. Once again, there is a 5 mm calcified nodule in the medial retroareolar region of the left breast. This is unchanged. Stable fat containing bilateral axillary lymph nodes. No suspicious masses, areas of developing architectural distortion, or suspicious calcifications. There has been no significant interval change. BI/SCRN MAMM (CAD)W/QUETA BILAT IMPRESSION: Stable bilateral screening mammogram. OVERALL FINAL ASSESSMENT BI-RADS 2: BENIGN RECOMMENDATION: Routine annual follow-up in 1 Year Additional Recommendation none A letter with findings and recommendations will be mailed to the patient. Reading Location: [id number]
== END | disposition home or self-care (01) ==
PROVIDERS: PCP Nurse Practitioner Family; Referring Provider Nurse Practitioner Family; Visit Provider Nurse Practitioner Family
DX: Z12.31 Encounter for screening mammogram for malignant neoplasm of breast (principal); Z78.0 Asymptomatic menopausal state; Z80.3 Family history of malignant neoplasm of breast
CPT/HCPCS: 77063; 77067; 77080